=== PATIENT | female | born 1945 ===

== ENCOUNTER 2025-05-03 09:03 | Outpatient (REF) | payer OTHER, SELFPAY ==
--- OUTSIDE RECORDS SUMMARY | 2025-05-02 16:40 | XMS_ITS | Encounter Summary ---
Author Organization [facility] Address [address] [place] [address] Care Team Providers Care Shrimp Pond Laborer Name Role Phone Latisha Zuluaga MD Primary Care Provider [phone] Reason for Referral * Consultation (Routine) - Closed Specialty Diagnoses / Procedures Referred By Gerry daly Referred To Contact Neurology Diagnoses Nonintractable headache, unspecified chronicity pattern, unspecified headache type Latisha Zuluaga MD [address] [phone] Phone: tel: fax: [facility] [address] [place] [address] Phone: tel: fax: Referral ID Status Reason Start Date Expiration Date V isits Requested Visits Authorized [id number] Closed Specialty Services Required 03/27/2025 03/27/2026 1 1 Reason for Visit * Reason Onset Date Comments Fax: Referral Request 03/27/2025 Encounter Details Date Type Department Care Team ([facility] st Contact Info) Description 03/27/2025 Telephone Internal Medicine - [place] [facility] [address] [place] [address] Latisha Zuluaga MD [address] [place] [phone] Fax: Referral Request Social History Tobacco Use Types Packs/Day Years [...] on file documented as of this encounter Progress Notes * Latisha Zuluaga MD - 03/27/2025 6:38 PM EDT Referral placed * Darcy Mendoza MA - 03/27/2025 1:09 PM EDT Please advise * Fadia Pelayo - 03/27/2025 11:34 AM EDT [facility] ([place]) Diagnosis: DYER Date of Service 03/28/25 Visit: 6 *desktop architect attached fax to encounter documented in this encounter Plan of Treatment Upcoming Encounters Date Type Department Care Team (Late st Contact Info) Description 06/06/2025 3:00 PM EDT Office Visit [facility] [address] [place] [phone] Burak Larson MD [address] [place] [phone] 06/19/2025 11:00 AM EDT [address] [facility] [address] [place] [address] Scheduled Referrals Name Type Priority Associated Diagnoses Order Schedule Ambulatory referral to Neurology Outpatient Referral Routine Nonintractable headache, unspecified chronicity pattern, unspecified headache type 1 Occurrences starting 03/27/2025 until 03/27/2026 documented as of this encounter Goals Goal [...] documented as of this encounter Visit Diagnoses Diagnosis Nonintractable headache, unspecified chronicity pattern, unspecified headache type- Primary documented in this encounter Care Teams Shrimp Pond Laborer Relationship Specialty Start Date End Date Latisha Zuluaga MD [address] [facility] [address] [place] [phone] PCP - General 09/24/24 documented as of this encounter
[2025-05-03 10:36] LABS: Anion Gap 10 (12-20); Blood Urea Nitrogen 18 mg/dL (9-16); Calcium 10.6 mg/dL (8.4-10.2); Carbon Dioxide 34 mmol/L (22-29); Chloride 102 mmol/L (96-108); Estimated Glomerular Filt Rate > 60; Glucose Random 98 mg/dL (60-115); Potassium 3.8 mmol/L (3.3-5.1); Sodium 142 mmol/L (135-145)
[2025-05-03 10:52] LABS: Free T4 (Free Thyroxine) 0.95 ng/dL (0.71-1.85)
[2025-05-03 10:57] LABS: Erythrocyte Sedimentation Rate 18 MM/HR (0-20)
[2025-05-03 11:07] LABS: Folate 9.5 ng/mL (> or = 4.0); Vitamin B12 688 pg/mL (200-900)
== END 2025-05-03 09:04 | disposition home or self-care (01) ==
LOC: HO.LAB 09:03
PROVIDERS: PCP Internal Medicine; Visit Provider Psychiatry & Neurology Neurology
DX: G31.84 Mild cognitive impairment of uncertain or unknown etiology (principal)
CPT/HCPCS: 36415; 80048; 82607; 82746; 84439; 85652

== ENCOUNTER 2025-07-04 13:00 | Outpatient (AMB) | payer MEDICARE, SELFPAY ==
--- OUTSIDE RECORDS SUMMARY | 2025-07-04 13:04 | XMS_ITS ---
Author Name James LEWIS Ibisreginasherly del toro German Address [address] [place] [id number] Phone [phone] [facility] Care Team Providers Care Propulsion Systems Engineer Name Role Phone JamesNithin Unavailable [phone] Reason for Referral Not Available Allergies, adverse reactions, alerts Allergen Type Reaction Severity Status Onset Date Ibuprofen Allergy to substance (disorder) Rash Unknown Active N/A History of medication use Medication Class Instructions Start Date End Date Ezetimibe 10 mg Tab TAKE 1 TABLET BY TAMANNA TH EVERY DAY 2022-01-08 No Data Available hydroCHLOROthiazide 25 mg Tab TAKE 1 TAB LET BY MOUTH EVERY DAY 2021-10-14 No Data Available Levothyroxine Sodium 50 MCG Tab TAKE 1 T AB BY MOUTH DAILY. TAKE 1 EXTRA PILL EVERY 2 WEEKS 2021-10-14 No Data Available Famotidine 40 mg Tab TAKE 1 TABLET BY MO UTH 2 TIMES DAILY FOR 360 DAYS. 2022-01-26 2022-09-16 Hydrocortisone 2.5 % Crm APPLY LOCALLY T WICE A DAY 2021-10-08 No Data Available DULoxetine 30 mg Cap delayed rel TAKE 1 CAPSULE BY MOUTH DAILY FOR 360 DAYS. 2022-07-22 2022-09-16 Nitroglycerin 0.4 mg Tab Sublingual TAKE 1TAB UNDER TONGUE FOR CHEST PAIN MAY REPEAT EVERY 5MIN UP 3 TIMES IN 15MIN CALL 911 2021-12-24 No Data Available Rosuvastatin Calcium 5 mg Tab TAKE 1 TAB LET BY MOUTH EVERY DAY 2022-08-30 No Data Available Oxybutynin Chloride ER 5 mg Tab ER 24hr 1 tablet orally TID 2022-09-16 No Data Available Albuterol Sulfate HFA 108 (9 0 Base) MCG/ACT Aerosol Solution Inhalation 2 puffs Q 4-6H PRN cough, wheezing 2022-09-16 No Data Available Dicyclomine 10 mg Cap 1 capsule 3x daily 2022-09-16 2023-07-06 Aricept 5 mg Tab 1 tablet orally one time 2022-09-16 No Data Available Omeprazole 10 mg Cap delayed rel Take 1 capsule twice daily. 2022-09-16 2023-07-06 Vitamin B12 1000 MCG Tab 1 tablet daily 2022-09-16 N o Data Available Vitamin D3 25 MCG (1000 UT) Cap 1 capsules orally lore y 2022-09-16 No Data Available Ondansetron 4 mg Tab Disintegrating TAKE 1 TABLET BY MOUTH EVERY 8 HOURS NEEDED FOR NAUSEA AND VOMITING 2023-01-23 2023-07-06 DULoxetine 30 mg Cap delayed rel TAKE 1 CAPSULE BY MOUTH EVERY DAY 2023-01-06 No Data Available [facility] COVID-19 Antigen Rap id Home Test kit DIRECTED 2023-03-17 No Data Available Famotidine 40 mg Tab TAKE 1 TABLET BY MO UTH AT BEDTIME NEEDED 2023-01-06 No Data Available MELATONIN 5 MG TABLET TAKE 1 TABLET BY M OUTH EVERYDAY AT BEDTIME 2023-06-15 No Data Available Metoclopramide 5 mg Tab TAKE 1 TABLET BY MOUTH EVERY DAY 2023-06-15 No Data Available predniSONE 20 mg Tab 2 TAB FOR 3 DAYS AN D THEN 1 TAB DAILY 2023-06-15 2023-07-06 Amoxicillin 500 mg Cap TAKE 1 CAPSULE BY MOUTH THREE TIMES A DAY UNTIL GONE 2023-06-29 No Data Available Acetaminophen Extra Strength 500 mg Tab TAKE 1 TABLET BY MOUTH 3 TIMES A DAY NEEDED 2023-09-26 No Data Available Amoxicillin-Pot Clavulanate 875/125 mg Tab TAKE 1 TABLET BY MOUTH EVERY 12 HOURS FOR 10 DAYS 2023-09-26 No Data Available methylPREDNISolone 4 mg Tab Therapy Pack TAKE 6 TABLETS ON DAY 1 DIRECTED ON PACKAGE AND DECREASE BY 1 TAB EACH DAY FOR A TOTAL OF 6 DAYS 2023-09-26 2024-03-20 MELATONIN 5 MG CAPSULE TAKE ONE CAPSULE BY MOUTH DAILY AT 9PM AT BEDTIME 2023-10-14 No Data Available Restasis 0.05 % Emulsion INSTILL ONE GERSON P IN EACH EYE TWICE DAILY 2023-10-04 No Data Available Baclofen 5 mg Tab TAKE ONE TABLET BY M OUTH AT BEDTIME NEEDED 2023-10-08 No Data Available Problem List Problem Status Onset Date Resolved Date Synopsis Angina pectoris, unspecified Active 2022-09-20 N/A Stablebased on m embdelgado continues to take nitroglycerin prn [facility] Update 07/06/23:Follows up with PCP and Software Test Engineer.Denies any current or recent symptoms.No need to take Nitro recently, but has Rx to take as needed.Continue treatment as prescribed, follow up as instructed.Contact CB 24/7 as needed. GERD (gastroesophageal reflux disease) Active 2022-09-15 N/A StableFollows up with PCP and GI.Famotidine, Metoclopramide Doing well on current treatment.Denies any acute complaint.Continue treatment as prescribed, follow up as instructed.Contact CB 24/[address] Jacobs, brick wheeler Hypothyroidism Active 2022-09-15 N/A StableFoll owed by PCP, Dr. Marcio Srinivasan meds as prescribedFollows up with PCP and Screening Specialist.:Levothyrox ine Sodium Doing well on current treatment.Denies any acute complaint.Continue treatment as prescribed, follow up as instructed.Contact CB 24/7 as needed. Hyperlipidemia Active 2022-09-15 N/A StableFoll owed by PCP, Dr. Marcio Srinivasan meds as prescribed:Rosuvastatin Calcium, EzetimibeDoing well on current treatment.Denies any acute complaint.Continue treatment as prescribed, follow up as instructed.Advised on low fat, low carb, heart healthy diet. Contact CB 24/7 as needed. Overactive bladder Active 2022-09-16 N/A Stable Followed by urologist (doesn't remember name)Taking meds as prescribedDenies any acute complaint.Oxybutynin Chloride ERContinue treatment as prescribed, follow up as instructed.Contact CB 24/7 as needed. Asthma Active 2022-09-16 N/A StableFollowed by PCP, Dr. Marcio Srinivasan meds as prescribedAlbuterol Sulfate HFA 108 (90 Base) Continue treatment as prescribed, follow up as instructed.Contact CB 24/7 as needed. Mild dementia without behavioral disturbance, psychotic disturbance, mood disturbance, or anxiety Active 2022-09-20 N/A StableAricept 5 mg Tab 1 tablet orally QDDoing well on current treatment.Denies any acute complaint.Continue treatment as prescribed, follow up as instructed.Contact CB 24/7 as needed. Atrioventricular block, completePacemaker Active 2023-07-06 N/A StableFollows up with Software Test Engineer.Has pacemaker in place. Denies any acute complaint.Continue treatment as prescribed, follow up as instructed.Contact CB 20/06 as needed. Continue f/u with cardiology. Hypertension Active 2023-07-06 N/A StableFollow s up with PCP and Software Test Engineer. Reports BP has been well controlled.hydroCHLOROthiaz zan Doing well on current treatment.Denies any acute complaint.Continue treatment as prescribed, follow up as instructed.Contact CB 20/06 as needed. Peripheral vascular disease, unspecified Active 2023-07-11 N/A StableMD Po rtal notes member does have a diagnosis that includes PVDcontinues statin therapyCompression stockings, elevate legs and continue with PCP. Other problems related to medical facilities and other health care Active 2024-03-20 N/A CONTINGENCY PLANMDD Member to call for the following symptoms: Refusing/forgetting to take medications/ Thoughts of self-harm/ Frequent panic attacks/ Increased agitationPlanned intervention: Transfer member to [address] [place] [address]/ Hydroxyzine (Vistaril) 25mg PO q6h PRN anxiety/ Remind member of breathing exercises/ Limit extra stimulation Major depressive disorder, recurrent, mild Active 2022-09-20 N/A Stable Duloxetin eReports doing well on treatment. Denies any SI or HI. Has follow up with PCP next week. Continue taking medication and using coping mechanisms. Encounters Encounters Type Facility Date of Service Diagnosis/Co mplaint Pain Assessment - NO pain present (1126F) [facility] [place] Pain Assessment - NO pain present (1126F) [facility] [place] Pain Assessment - NO pain present (1126F) [facility] [place] Pain Assessment - NO pain present (1126F) [facility] [place] Pain Assessment - NO pain present (1126F) [facility] [place] Pain Assessment - NO pain present (1126F) [facility] [place] Pain Assessment - NO pain present (1126F) [facility] ([place]) 09/16/2022 Gastro-esophageal reflux disease without esophagitisHypothyroidism, unspecifiedHyperlipidemia, unspecifiedOveractive bladderUnspecified asthma, uncomplicatedMajor depressive disorder, single episode, moderateAngina pectoris, unspecifiedUnspecified dementia without behavioral disturbance Estab. patient 30-39min; chronic exacerbation, 2 stable chronic or 1 acute illness add add modifier 95 for video, (do not use for phone, instead use [id number]) [facility] ([place]) 07/[place]/2023 Major depressive disorder, single episode, moderateAngina pectoris, unspecifiedUnspecified dementia, mild, without behavioral disturbance, psychotic disturbance, mood disturbance, and anxietyPeripheral vascular disease, unspecifiedAtrioventricular block, completeGastro-esophageal reflux disease without esophagitisHypothyroidism, unspecifiedHyperlipidemia, unspecifiedOveractive bladderUnspecified asthma, uncomplicatedEssential (primary) hypertensionPresence of cardiac pacemaker Estab. patient 30-39min; chronic exacerbation, 2 stable chronic or 1 acute illness add add modifier 95 for video, (do not use for phone, instead use 24859-45) [facility] ([place] Estab. patient 30-39min; chronic exacerbation, 2 stable chronic or 1 acute illness add add modifier 95 for video, (do not use for phone, instead use 45971-49) [facility] [place] Estab. patient 30-39min; chronic exacerbation, 2 stable chronic or 1 acute illness add add modifier 95 for video, (do not use for phone, instead use 54920-99) [facility] [place] Estab. patient 30-39min; chronic exacerbation, 2 stable chronic or 1 acute illness add add modifier 95 for video, (do not use for phone, instead use 14727-25) [facility] [place] Estab. patient 30-39min; chronic exacerbation, 2 stable chronic or 1 acute illness add add modifier 95 for video, (do not use for phone, instead use 46193-77) [facility] ([place]20[place] Estab. patient 30-39min; chronic exacerbation, 2 stable chronic or 1 acute illness add add modifier 95 for video, (do not use for phone, instead use 59185-24) [facility] ([place] Estab. patient 30-39min; chronic exacerbation, 2 stable chronic or 1 acute illness add add modifier 95 for video, (do not use for phone, instead use 50570-82) [facility] ([place]) 07/06/2023 Unlisted special service; to be used for medical record reviews and reporting CPTII codes (1111F, etc) [facility] ([place] 09[place]29/2023 Other specified health statu s Unlisted special service; to be used for medical record reviews and reporting CPTII codes (1111F, etc) [facility] ([place] 09[place]29/2023 Unlisted special service; to be used for medical record reviews and reporting CPTII codes (1111F, etc) [facility] ([place] 09[place]29/20[place] Estab. patient 30-39min; chronic exacerbation, 2 stable chronic or 1 acute illness add add modifier 95 for video, (do not use for phone, instead use 63308-71) [facility] ([place] 03[place]/2024 Gastro-esophageal reflux disease without esophagitisHypothyroidism, unspecifiedHyperlipidemia, unspecifiedOveractive bladderUnspecified asthma, uncomplicatedOther problems related to medical facilities and other health careAngina pectoris, unspecifiedUnspecified dementia, mild, without behavioral disturbance, psychotic disturbance, mood disturbance, and anxietyAtrioventricular block, completePresence of cardiac pacemakerEssential (primary) hypertensionPeripheral vascular disease, unspecifiedMajor depressive disorder, recurrent, mild Estab. patient 30-39min; chronic exacerbation, 2 stable chronic or 1 acute illness add add modifier 95 for video, (do not use for phone, instead use 02615-30) [facility] ([place] 03[place]/20[place] Estab. patient 30-39min; chronic exacerbation, 2 stable chronic or 1 acute illness add add modifier 95 for video, (do not use for phone, instead use 92265-68) [facility] ([place] 03[place]/20[place] Estab. patient 30-39min; chronic exacerbation, 2 stable chronic or 1 acute illness add add modifier 95 for video, (do not use for phone, instead use 60443-44) [facility] ([place] 03/20/20[place] Estab. patient 30-39min; chronic exacerbation, 2 stable chronic or 1 acute illness add add modifier 95 for video, (do not use for phone, instead use 86813-89) [facility] ([place] 03[place]/20[place] Estab. patient 30-39min; chronic exacerbation, 2 stable chronic or 1 acute illness add add modifier 95 for video, (do not use for phone, instead use 15779-28) [facility] [place] 03[place] Estab. patient 30-39min; chronic exacerbation, 2 stable chronic or 1 acute illness add add modifier 95 for video, (do not use for phone, instead use 92462-08) [facility] ([place] 03[place]20/20[place] Estab. patient 30-39min; chronic exacerbation, 2 stable chronic or 1 acute illness add add modifier 95 for video, (do not use for phone, instead use 91270-53) [facility] [place] 03[place]20[place] Estab. patient 30-39min; chronic exacerbation, 2 stable chronic or 1 acute illness add add modifier 95 for video, (do not use for phone, instead use 41422-04) [facility] [place] 03[place] Estab. patient 30-39min; chronic exacerbation, 2 stable chronic or 1 acute illness add add modifier 95 for video, (do not use for phone, instead use 14744-06) [facility] ([place] 03[place]/2024 Vital Signs Date of Collection Vitals 2022-09-16 09:01:10 Height - 157.48 cmWe ight - 61.24 kgBody Mass Index (BMI) - 24.69 kg/m2 2023-07-06 07:18:09 Height - 157.48 cmWe ight - 56.25 kgBody Mass Index (BMI) - 22.68 kg/m2BP Diastolic - 80.0 mm[Hg]BP Systolic - 125.0 mm[Hg]Pain Scale - 0.0 {score} 2024-03-20 13:15:00 Height - 157.48 cmWe ight - 57.15 kgBody Mass Index (BMI) - 23.05 kg/m2BP Diastolic - 80.0 mm[Hg]BP Systolic - 140.0 mm[Hg] Social History Social History Social History Observation Description Effec tive Time Current Smoking Status Former smoker 7 Sex Female Gender identity Woman History of Procedures Procedures Service Procedure code Service date Servicing provider Phone# Pain Assessment - NO pain present (1126F) 1126F 2022-09-16 No Data Available No Data A vailable Medication List Documented (1159F) 1159F 2022-09-16 No Data Available No Data Vee ilable Medication Review by prescribing provider or pharmacist documented (1160F) 1160F 2022-09-16 No Data Available No Data Vee ilable Functional Status Assessed (1170F) 1170F 2022-09-16 No Data Available No Data Avail able Advance Care Directive Advance care planning discussion documented in the medical record (1158F) 1158F 2022-09-16 No Data Available No Data Availa ble BMI obtained (3008F) 3008F 2022-09-16 No Data Availab le No Data Available New patient,40-59min; chronic exacerbation, 2 stable chronic or 1 acute illness add add modifier 95 for video (do not use for phone, instead use [id number]) 99320 2022-09-16 No Data Available No Data Availa ble Estab. patient 30-39min; chronic exacerbation, 2 stable chronic or 1 acute illness add add modifier 95 for video, (do not use for phone, instead use 23279-54) 24455 2023-07-06 No Data Available No Data Availa ble Advance care planning discussed and documented advance care plan or surrogate decision-maker was documented in the medical record. (1123F) 1123F 2023-07-06 No Data Available No Data Availa ble Functional Status Assessed (1170F) 1170F 2023-07-06 No Data Available No Data Avail able Medication List Documented (1159F) 1159F 2023-07-06 No Data Available No Data Vee ilable Medication Review by prescribing provider or pharmacist documented (1160F) 1160F 2023-07-06 No Data Available No Data Vee ilable Pain Assessment - NO pain present (1126F) 1126F 2023-07-06 No Data Available No Data A vailable BMI obtained (3008F) 3008F 2023-07-06 No Data Availab le No Data Available Advance Care Directive Advance care planning discussion documented in the medical record (1158F) 1158F 2023-07-06 No Data Available No Data Availa ble Unlisted special service; to be used for medical record reviews and reporting CPTII codes (1111F, etc) 07326 2023-09-29 No Data Available No Data Availa ble SBP < 130 (3074F) 3074F 2023-09-29 No Data Available No Data Available DBP 80-89 (3079F) 3079F 2023-09-29 No Data Available No Data Available Estab. patient 30-39min; chronic exacerbation, 2 stable chronic or 1 acute illness add add modifier 95 for video, (do not use for phone, instead use 21724-70) 08272 2024-03-20 No Data Available No Data Availa ble Medication List Documented (1159F) 1159F 2024-03-20 No Data Available No Data Vee ilable Medication Review by prescribing provider or pharmacist documented (1160F) 1160F 2024-03-20 No Data Available No Data Vee ilable Pain Assessment - NO pain present (1126F) 1126F 2024-03-20 No Data Available No Data A vailable BMI obtained (3008F) 3008F 2024-03-20 No Data Availab le No Data Available Advance Care Directive Advance care planning discussion documented in the medical record (1158F) 1158F 2024-03-20 No Data Available No Data Availa ble Advance care planning discussed and documented advance care plan or surrogate decision-maker was documented in the medical record. (1123F) 1123F 2024-03-20 No Data Available No Data Availa ble SBP >= 140 3077F 2024-03-20 No Data Available No Data Available DBP 80-89 (3079F) 3079F 2024-03-20 No Data Available No Data Available Functional Status Assessed (1170F) 1170F 2024-03-20 No Data Available No Data Avail able Functional Status Functional Category Effective Dates supervision w/ IADLs & ADLs, family supp orts 2022-09-17 Activities of Daily Livin2023-07-06 Bathing: Needs some Assistance 9 Ambulation/Walking: Independent Eating: Independent 2023-07-06 Dressing: Needs some Assistance Toileting: Independent 2023-07-06 Transferring: Independent 2023-07-06 Cognition Status: Dementia - mild 03-20 Falls in last 6 Months: No 2024-03-20 ADL: Bathing Needs Assistanc e , Dressing Needs Assistance , Eating Independent , Ambulation Needs Assistance , Transferring Needs Assistance and Toileting Needs Assistance 2024-03-20 IADL: Medication Needs Akbar tance , Meal Prep Needs Assistance , Shopping Needs Assistance , Driving or Public Transport Needs Assistance , Housework Needs Assistance and Finances Needs Assistance 2024-03-20 Social Supports - # of Inter actions with Friends/Family in a typical week: 2024-03-20 Mental Status Status Date A&O x3 2022-09-17 Assessments Date of Service Assessments 2022-09-16 09:01:10 GERD (gastroesophage al reflux disease)HypothyroidismHyperlipidemiaOveractive bladderAsthmaMajor depressive disorder, single episode, moderateAngina pectoris, unspecifiedDementia 2023-07-06 07:18:09 GERD (gastroesophage al reflux disease)HypothyroidismHyperlipidemiaOveractive bladderAsthmaMajor depressive disorder, single episode, moderateAngina pectoris, unspecifiedMild dementia without behavioral disturbance, psychotic disturbance, mood disturbance, or anxietyAtrioventricular block, completePacemakerHypertensionPeripheral vascular disease, unspecified 2024-03-20 13:15:00 Other problems relat ed to medical facilities and other health careGERD (gastroesophageal reflux disease)HypothyroidismHyperlipidemiaOveractive bladderAsthmaAngina pectoris, unspecifiedMild dementia without behavioral disturbance, psychotic disturbance, mood disturbance, or anxietyAtrioventricular block, completePacemakerHypertensionPeripheral vascular disease, unspecifiedMajor depressive disorder, recurrent, mild Plan of Care Date of Service Plans 2022-09-16 09:01:10 Pain Assessment - NO pain documented (1126F)Medication Review by prescribing provider or pharmacist documented (1160F)Medication List Documented (1159F)Functional Status Assessed (1170F)Advance Care Directive Advance care planning discussion documented in the medical record (1158F)BMI obtained (3008F)Televideo new patient,40-59min; chronic exacerbation, 2 stable chronic or 1 acute illness add modifier 95Continue to see PCP. Follow-up with [facility] as needed for any acute or disease education needs that may arise.Followed by Dr. Jacobs gastroenterologistTaking meds as prescribedFollowed by PCP, Dr. Marcio Rodriguezking meds as prescribedFollowed by PCP, Dr. Marcio Rodriguezking meds as prescribedFollowed by urologist (doesn't remember name)Taking meds as prescribedFollowed by PCP, Dr. Marcio Rodriguezking meds as prescribedControlledPHQ9 score=12. Please consider adding F32.1 (MDD, single episode, moderate) as this diagnosis has a higher specificity and may more accurately reflect residents conditions (vs. F32.A)based on member continues to take nitroglycerin prnbased on member continues to take aricept 5mg daily 2023-07-06 07:18:09 Medication Review by prescribing provider or pharmacist documented (1160F)Medication List Documented (1159F)Functional Status Assessed (1170F)Advance Care Directive Advance care planning discussion documented in the medical record (1158F)BMI obtained (3008F)SBP < 130 (3074F)DBP <80 (3078F)Televideo 30-39min; chronic exacerbation, 2 stable chronic or 1 acute illness add modifier 95Advance care planning discussed and documented advance care plan or surrogate decision-maker was documented in the medical record. (1123F)Pain Assessment - NO pain documented (1126F)Continue to see PCP. Follow-up with [facility] as needed for any acute or disease education needs that may arise.Followed by Dr. Jacobs, gastroenterologistTaking meds as prescribedECCA Update 07/06/23:Follows up with PCP and GI.Taking:Famotidine 40 mg Tab TAKE 1 TABLET BY MOUTH AT BEDTIME NEEDEDMetoclopramide 5 mg Tab TAKE 1 TABLET BY MOUTH EVERY DAYDoing well on current treatment.Denies any acute complaint.Continue treatment as prescribed, follow up as instructed.Contact CB 20/06 as needed.Followed by PCP, Dr. Marcio kendall as prescribedECCA Update 07/06/23:Follows up with PCP and Screening Specialist.Taking:Levothyroxine Sodium 50 MCG Tab TAKE 1 TAB BY MOUTH DAILY. TAKE 1 EXTRA PILL EVERY 2 WEEKSDoing well on current treatment.Denies any acute complaint.Continue treatment as prescribed, follow up as instructed.Contact CB 24/7 as needed.Followed by PCP, Dr. Marcio kendall as prescribedECCA Update 07/06/23:Follows up with PCP.Taking:Rosuvastatin Calcium 5 mg Tab TAKE 1 TABLET BY MOUTH EVERY DAYEzetimibe 10 mg Tab TAKE 1 TABLET BY MOUTH EVERY DAYDoing well on current treatment.Denies any acute complaint.Continue treatment as prescribed, follow up as instructed.Advised on low fat, low carb, heart healthy diet. Contact CB 24/7 as needed.Followed by urologist (doesn't remember name)Taking meds as prescribedECCA Update 07/06/23:Denies any acute compalint.Taking:Oxybutynin Chloride ER 5 mg Tab ER 24hr 1 tablet orally TIDContinue treatment as prescribed, follow up as instructed.Contact CB 24/7 as needed.Followed by PCP, Dr. Marcio kendall as prescribedControlledECCA Update 07/06/23:No recent symptoms. Well controlled.Follows up with: PCP, next appt next week. Taking:Albuterol Sulfate HFA 108 (90 Base) MCG/ACT Aerosol Solution Inhalation 2 puffs Q 4-6H PRN cough, wheezingContinue treatment as prescribed, follow up as instructed.Contact CB 24/7 as needed.PHQ9 score=12. Please consider adding F32.1 (MDD, single episode, moderate) as this diagnosis has a higher specificity and may more accurately reflect residents conditions (vs. F32.A)ECCA Update 07/06/23:Follows up with PCP. Started taking Duloxetine 5 months ago. Reports doing well on treatment. Denies any SI or HI. Has follow up with PCP next week. Taking:DULoxetine 30 mg Cap delayed rel TAKE 1 CAPSULE BY MOUTH EVERY DAYContinue treatment as prescribed, follow up as instructed.Contact CB 24/7 as needed.based on member continues to take nitroglycerin prn ECCA Update 07/06/23:Follows up with PCP and Software Test Engineer.Denies any current or recent symptoms.No need to take Nitro recently, but has Rx to take as needed.Continue treatment as prescribed, follow up as instructed.Contact CB 24/7 as needed.based on member continues to take aricept 5mg dailyECCA Update 07/06/23:Follows up with PCP.Denies any complaints. Taking:Aricept 5 mg Tab 1 tablet orally QDDoing well on current treatment.Denies any acute complaint.Continue treatment as prescribed, follow up as instructed.Contact CB 24/7 as needed.Follows up with Software Test Engineer.Has pacemaker in place. Last BP obtained from outside records: 03/15/23 125/80 Denies any acute complaint.Continue treatment as prescribed, follow up as instructed.Contact CB 24/7 as needed.Follows up with PCP and Software Test Engineer. Last BP obtained from outside records: 03/15/23 125/80.Reports BP has been well controlled.Taking:hydroCHLOROthiazide 25 mg Tab TAKE 1 TABLET BY MOUTH EVERY DAYDoing well on current treatment.Denies any acute complaint.Continue treatment as prescribed, follow up as instructed.Contact CB 24/7 as needed.MD Sewell notes member does have a diagnosis that includes PVDcontinues statin therapy. Follow up with PCP. 2023-09-29 09:00:47 Unlisted special ser vice; to be used for medical record reviews and reporting CPTII codes (1111F, etc) 2024-03-20 13:15:00 Medication Review by prescribing provider or pharmacist documented (1160F)Medication List Documented (1159F)Functional Status Assessed (1170F)Advance Care Directive Advance care planning discussion documented in the medical record (1158F)BMI obtained (3008F)SBP >= 140DBP 80-89 (3079F)Televideo 30-39min; chronic exacerbation, 2 stable chronic or 1 acute illness add modifier 95Advance care planning discussed and documented advance care plan or surrogate decision-maker was documented in the medical record. (1123F)Pain Assessment - NO pain documented (1126F)Continue to see PCP. Follow-up with [facility] as needed for any acute or disease education needs that may arise.CONTINGENCY PLANMDD Member to call for the following symptoms: Refusing/forgetting to take medications/ Thoughts of self-harm/ Frequent panic attacks/ Increased agitationPlanned intervention: Transfer member to [address] [place] [address]/ Hydroxyzine (Vistaril) 25mg PO q6h PRN anxiety/ Remind member of breathing exercises/ Limit extra stimulationStableFollows up with PCP and GI.Famotidine, Metoclopramide Doing well on current treatment.Denies any acute complaint.Continue treatment as prescribed, follow up as instructed.Contact CB 24/[address] Jacobs, gastroenterologistStableFollowed by PCP, Dr. Marcio Srinivasan meddinorah as prescribedFollows up with PCP and Screening Specialist.:Levothyroxine Sodium Doing well on current treatment.Denies any acute complaint.Continue treatment as prescribed, follow up as instructed.Contact CB 24/7 as needed.StableFollowed by PCP, Dr. Marcio Srinivasan meds as prescribed:Rosuvastatin Calcium, EzetimibeDoing well on current treatment.Denies any acute complaint.Continue treatment as prescribed, follow up as instructed.Advised on low fat, low carb, heart healthy diet. Contact CB 24/7 as needed.StableFollowed by urologist (doesn't remember name)Taking meds as prescribedDenies any acute complaint.Oxybutynin Chloride ERContinue treatment as prescribed, follow up as instructed.Contact CB 24/7 as needed.StableFollowed by PCP, Dr. Marcio kendall as prescribedAlbuterol Sulfate HFA 108 (90 Base) Continue treatment as prescribed, follow up as instructed.Contact CB 24/7 as needed.Stablebased on member continues to take nitroglycerin prn [facility] Update 07/06/23:Follows up with PCP and Software Test Engineer.Denies any current or recent symptoms.No need to take Nitro recently, but has Rx to take as needed.Continue treatment as prescribed, follow up as instructed.Contact CB 24/7 as needed.StableAricept 5 mg Tab 1 tablet orally QDDoing well on current treatment.Denies any acute complaint.Continue treatment as prescribed, follow up as instructed.Contact CB 24/7 as needed.StableFollows up with Software Test Engineer.Has pacemaker in place. Denies any acute complaint.Continue treatment as prescribed, follow up as instructed.Contact CB 24/7 as needed. Continue f/u with cardiology.StableFollows up with PCP and Software Test Engineer. Reports BP has been well controlled.hydroCHLOROthiazide Doing well on current treatment.Denies any acute complaint.Continue treatment as prescribed, follow up as instructed.Contact CB 24/7 as needed.StableMD Portal notes member does have a diagnosis that includes PVDcontinues statin therapyCompression stockings, elevate legs and continue with PCP.Stable DuloxetineReports doing well on treatment. Denies any SI or HI. Has follow up with PCP next week. Continue taking medication and using coping mechanisms. Goals Date Goal 2022-09-16 Remember to call oph thalmologist about recent visual disturbances, dizziness 2022-09-16 Call me if you are f eeling sick or ill; experiencing a mental health crisis. 2022-09-16 Keep it up w/ increa sing fluids 2023-07-06 Remember to keep all appointments with your PCP and specialists. Call CB 24/7 if you have questions or concerns. Discussed how to contact [facility] via phone or tablet. 24 phone number provided. 2024-03-20 Remember to adhere t o dietary interventions and exercise as tolerable. 2024-03-20 Contact us if develo ping worsening depression, acute cardiac s/sx (eg. palpitations, chest pain), SOB, GI s/sx, uncontrolled hypothyroidism, or acute change in mental status. 2024-03-20 Continue taking medi cations as prescribed and f/u care and monitoring with PCP every 3-6 months. Health Concerns Date Concern 2024-03-20 Visit completed juliano plascencia audio/video. Patient/Guardian agreed to visit via telehealth. Today, patient has chief complaint of: follow up care and comprehensive review.Reviewed Allergies, Medications, Active Medical conditions, past medical/surgical history, Social history. 2024-03-20 Advance Care Planluis antonio plascencia conversation with: Salima, reports her daughter, Salima Watson is healthcare proxy. Full code. 2024-03-20 Most recent hospital stay(s) or ER visit(s) and precipitating factors: Denies in the last month. 2024-03-20 Informed verbal cons ent was obtained from this patient to communicate and provide care using virtual and other telecommunications tools. This patient has been explained the risks, if any, related to the encounter. I explained that care provided through video or audio communication cannot replace the need for physical examination or an in-person visit for some disorders or urgent problems.
--- OUTSIDE RECORDS SUMMARY | 2025-07-04 13:05 | XMS_ITS | Clinical Summary ---
Author Organization [address] [facility] Address [address] [place] [address] Phone Care Team Providers Care Embedded Linux Developer Name Role Phone Latisha Zuluaga MD Primary Care Provider [phone] Allergies Active Allergy Reactions Criticality Noted Date Comments Ibuprofen High 04/14/2018 Other Reaction(s): Hives/Urticaria Pneumococcal 13-Valent Conjugate To Diphtheria Crm 09/30/2020 No reaction documented. Medications albuterol HFA (PROAIR HFA ; PROVENTIL HFA ; VENTOLIN HFA) 90 mcg/actuation inhaler Inhale 2 Puffs into the lungs every 6 hours as needed for Cough or Wheezing. 1 Active cholecalciferol (VITAMIN D-3) 25 mcg (1,000 unit) tablet Take 1 tablet by mouth daily. Active DICLOFENAC SODIUM TOP Apply 1 g topically 4 times daily as needed (pain). 4 Active hydrocortisone 2.5 % cream Apply locally twice a day 1 Active magnesium oxide 500 mg magnesium tablet Take 500 mg by mouth. 9 Active metoclopramide (REGLAN) 5 mg tablet TAKE ONE TABLET BY MOUTH DAILY AT 9AM 4 Active nitroglycerin (NITROSTAT) 0.[address] 1 Tablet under the tongue every 5 minutes as needed for Chest pain. 3 Active omeprazole (PriLOSEC) [address] capsule Take 1 Capsule by mouth. 3 Active cyanocobalamin (VITAMIN B-12) 1,000 mcg tablet Take 1,000 mcg by mouth daily. Active aspirin 81 mg EC tablet Take 1 tablet (81 mg total) by mouth 1 (one) time each day. Active ubrogepant (UBRELVY) 50 mg tabletIndicatio ns:Migraine with aura and without status migrainosus, not intractable 1 po at onset of migraine. March repeat 1 tab after 2 hours if needed, max 2/day. 8 tablet 5 5 Active riboflavin (VITAMIN B2) 400 mg tablet TAKE 1 TABLET BY MOUTH EVERY DAY 30 tablet 3 5 Active melatonin 5 mg capsule Take 5 mg by mouth at bedtime. 90 each 5 Active levothyroxine (SYNTHROID, LEVOTHROID) 50 mcg tablet Take 1 tablet (50 mcg total) by mouth 1 (one) time each day before breakfast. 90 tablet 3 5 Active famotidine (PEPCID) 40 mg tablet Take 1 tablet (40 mg total) by mouth 1 (one) time each day. 90 tablet 1 5 Active oxyBUTYnin (DITROPAN) 5 mg tabletIndicatio ns:Essential (primary) hypertension,Hy pothyroidism, unspecified Take 1 tablet (5 mg total) by mouth 3 (three) times a day. 270 tablet 5 Active hydroCHLOROthia zide (HYDRODIURIL) 25 mg tablet Take 1 tablet (25 mg total) by mouth 1 (one) time each day. 30 tablet 5 Active Additional Information Patient taking differently:25 mg oral2 times daily PRN, Reported on 06/06/2025 donepeziL (ARICEPT) 5 mg tablet Take 1 tablet (5 mg total) by mouth at bedtime. 90 tablet 1 5 Active DULoxetine (CYMBALTA) [address] capsule Take 1 capsule (30 mg total) by mouth 1 (one) time each day. 90 capsule 1 5 Active baclofen (LIORESAL) 5 mg tablet Take 1 tablet (5 mg total) by mouth at bedtime as needed for muscle spasms. at bedtime 90 tablet 1 5 Active rosuvastatin (CRESTOR) 5 mg tablet Take 1 tablet (5 mg total) by mouth 1 (one) time each day. 90 tablet 3 5 Active galcanezumab-gn lm (EMGALITY) 120 mg/mL injection penIndications: Migraine with aura and without status migrainosus, not intractable Inject 1 mL (120 mg total) under the skin every 28 (twenty-eight) days. 1 each 5 5 025 Active SUMAtriptan (IMITREX) 50 mg tablet Take 1 tablet (50 mg total) by mouth 1 (one) time if needed for migraine. May repeat dose once in 2 hours if no relief. Do not exceed 2 doses in 24 hours. 9 tablet 5 5 025 Discontin ued(Thera py completed ) galcanezumab-gn lm (EMGALITY) 120 mg/mL injection penIndications: Migraine with aura and without status migrainosus, not intractable Inject 1 mL (120 mg total) under the skin every 28 (twenty-eight) days. 1 each 5 5 025 Discontin ued(Reord ) Hospital, Clinic, or Other Facility Administered Medication Ordered Dose Route Frequency Start Date End Date Status galcanezumab-gnlm (EMGALITY) injection pen 120 mgIndications:Migr britany with aura and without status migrainosus, not intractable 120 mg subQ Every 28 days 06/06/2025 06/06/2025 Discontinu ed perflutren lipid microsphere (DEFINITY) 1.3 mL in sodium chloride 0.9% 8.7 mL injectionIndicatio ns:Shortness of breath on exertion 10 mL IV Once 06/19/2025 06/19/2025 Ended Active Problems Problem Noted Date Diagnosed Date Intracranial carotid stenosis, bilateral 024 Assessment & Plan (03/26/2025 9:29 AM EDT): Orders: ECG 12 lead Claudication (CMS/[facility] V24) 08/30/2022 Overview (09/10/2024): Last Assessment & Plan: She does get some calf discomfort with walking. Do think we should exclude peripheral arterial disease and we will schedule for ABIs. Mixed hyperlipidemia 08/30/2022 Overview (09/10/2024): Last Assessment & Plan: I reviewed her last lipid profile from June demonstrated total cholesterol was 233, triglycerides of 247 the LDL was 135. I spoke to her about starting rosuvastatin. I discussed the indication as well as some, but not all possible side effects including muscle aches rare case of liver affecting the liver or muscle damage leading to renal problems. I have asked her to take the medicine once a day and I will repeat her blood work in 4 to 6 weeks I did tell her I placed the order and do want to go for blood work then. [place] 10/09/2021 Chest pain on exertion 08/26/2021 Overview (09/10/2024): Last Assessment & Plan: As I know she has been having chest tightness with exertion associated with no shortness of breath. As I noted she will be getting labs as well as a chest x- ray. Its not clear if this may be ischemic mediated I am going to schedule for nuclear stress test. Assessment & Plan (03/26/2025 9:29 AM EDT): She reports experiencing fatigue and dyspnea, particularly when ascending approximately 7 steps. She also experiences difficulty in walking on flat surfaces, accompanied by chest tightness and shortness of breath. These symptoms have been present for about 2 years and have progressively worsened over the past 6 months. Given her third-degree AV block and the presence of a [employer] permanent pacemaker, it is crucial to rule out angina or inadequate blood flow to the heart as potential causes. A pharmacological stress test will be conducted to simulate exercise and take pictures of the heart. Additionally, an echocardiogram will be repeated. Orders: Nuclear stress test with myocardial perfusion; Future Shortness of breath on exertion 08/26/2021 Overview (09/10/2024): Last Assessment & Plan: She has chronic dyspnea. She does feel this is slightly worse in the last 6 months. I will repeat an echocardiogram. Ordered pulmonary function testing. She is euvolemic with no symptoms of volume overload. Assessment & Plan (03/26/2025 9:29 AM EDT): Orders: ECG 12 lead Nuclear stress test with myocardial perfusion; Future Transthoracic echocardiogram (TTE) complete with PRN contrast, bubble, strain, and 3D order panel; Future Allergic rhinitis 09/30/2020 Anxiety 09/30/2020 Diverticulosis 09/30/2020 Dementia (CMS/HCC V24, CMS/HCC V28) 09/30/2020 Depression 09/30/2020 GERD (gastroesophageal reflux disease) 0 IBS (irritable bowel syndrome) 09/30/2020 Hiatal hernia 09/30/2020 Restless leg syndrome 09/30/2020 Arthritis 06/02/2020 Asthma 06/02/2020 Acquired hypothyroidism 05/09/2019 Essential hypertension 05/09/2019 Assessment & Plan (03/26/2025 9:29 AM EDT): Reasonably well-controlled. Will continue present therapy. Orders: ECG 12 lead Pure hypercholesterolemia 05/09/2019 Overview (09/10/2024): Last Assessment & Plan: Last lipid panel from September 2021. Total cholesterol 227, triglycerides 172, HDL 55, LDL 138, we discussed low-cholesterol diet. This is followed by PCP. Continue Zetia. Assessment & Plan (03/26/2025 9:29 AM EDT): On lipid-lowering therapy. Will continue. Orders: ECG 12 lead AV block, 3rd degree (CMS/HCC V24, CMS/HCC V28) 01/03/2019 Overview (09/10/2024): Last Assessment & Plan: Pacemaker was interrogated in June and appears to be functioning normally. She has 6 and half years left that she will need a new battery. Assessment & Plan (03/26/2025 9:29 AM EDT): Patient is pacemaker dependent. She has had reasonable chronotropic response to activity on a stress test in the past. She is followed in our device clinic. No pacemaker dysfunction is noted. Orders: Ambulatory referral to Cardiology ECG 12 lead Fibromyalgia 04/14/2018 Old AL (myocardial infarction) 04/14/2018 Encounters Date Type Department Care Team Description 06/19/2025 11:00 AM EDT Ancillary Procedure [facility] Cardiology [facility] [address] [place] [phone] Shortness of breath on exertion 06/06/2025 9:00 AM EDT Office Visit [facility] for [place] - [place] [address] [place] [phone] Burak Larson MD Migraine with aura and without status migrainosus, not intractable (Primary Dx); Anxiety 05/24/2025 Telephone [facility] Cardiology [address] [place] [phone] Oc Khan NP 05/20/2025 7:40 PM EDT Ancillary Procedure [facility] - [address] [place] [phone] 05/16/2025 Telephone Internal Medicine - [place] [address] [place] [phone] Latisha Zuluaga MD [place]: Referral 04/16/2025 9:00 AM EDT Ancillary Procedure [facility] - [address] [place] [phone] Shortness of breath on exertion; Chest pain on exertion from Last 3 Months Immunizations Name Administration Dates Next Due Pneumococcal conjugate 13 va lent (Prevnar 13, PCV13) 2mo and older 08/20/2015 Pneumococcal polysaccharide 23 valent (Pneumovax 23) 2yo and older 11/27/2012 Tdap Tetanus diptheria acell ular pertussis (Boostrix; Adacel) 7yo and older 11/27/2012 Tetanus Toxoid, Unspecified 11/28/1999 Surgical History Surgery Date Site/Laterality Comments APPENDECTOMY PROCEDURE: HISTORICAL APPENDECTOMY PACEMAKER IMPLANT PROCEDURE: HISTORICAL PACEMAKER UPPER GASTROINTESTINAL ENDOSCOPY 09/07/2013 PROCEDURE: UPPER GI ENDOSCOPY/EXAM; COMMENT: diverticulosis CATARACT EXTRACTION PROCEDURE: HISTORICAL CATARACT REMOVAL TUBAL LIGATION PROCEDURE: HISTORICAL TUBAL LIGATION BREAST LUMPECTOMY PROCEDURE: ---- BREAST LUMP BIOPSY ---- Medical History Medical History Date Comments Acquired hypothyroidism 05/09/2019 DX:Acqui red hypothyroidism Arthritis 06/02/2020 DX:Arthritis Asthma 06/02/2020 DX:Asthma AV block, 3rd degree ([facility]/ C V24, [facility] V28) 01/03/2019 DX:AV block, 3rd degree ([facility] ) Essential hypertension 05/09/2019 DX:Essent ial hypertension Fibromyalgia 04/14/2018 DX:Fibromyalgia Old AL (myocardial infarction) 04/14/2018 D X:Old AL (myocardial infarction) Pacemaker 06/02/2020 DX:Pacemaker Pure hypercholesterolemia 05/09/2019 DX:Pur e hypercholesterolemia Diverticulosis 09/30/2020 DX:Diverticulosi s Allergic rhinitis 09/30/2020 DX:Allergic rh initis Anxiety 09/30/2020 DX:Anxiety Dementia ([facility] V24, [facility] V28) 09/30/2020 DX:Dementia ([facility]) Depression 09/30/2020 DX:Depression GERD (gastroesophageal reflux disease) 09/30/2020 DX:GERD (gastroesophageal reflux disease) IBS (irritable bowel syndrome) 09/30/2020 D X:IBS (irritable bowel syndrome) Hiatal hernia 09/30/2020 DX:Hiatal hernia Restless leg syndrome 09/30/2020 DX:Restles s leg syndrome Family History Medical History Relation Name Comments Heart attack Father Heart failure Father Hyperlipidemia Father Hypertension Father Heart attack Mother Heart failure Mother Hyperlipidemia Mother Hypertension Mother Relation Name Status Comments Father Mother Social History Tobacco Use Types Packs/Day Years Used Date Smoking Tobacco: Former Smokeless Tobacco: Never Alcohol Use Standard Drinks/Week Comments No 0 (1 standard drink = 0.6 oz pur e alcohol) Comments Unknown Sex and Gender Information Value Date Recorded Sex Assigned at Not on file Legal Sex Female 2:14 AM EST Gender Identity Not on file Sexual Orientation Not on file Obstetrics History Last Filed Vital Signs Vital Sign Reading Time Taken Comments Blood Pressure 162/82 06/19/2025 11:55 AM EDT Pulse 65 06/06/2025 9:27 AM EDT Temperature 35.9 C (96.7 F) 06/06/2025 9:27 AM EDT Respiratory Rate 16 10/02/2024 3:32 PM EST Oxygen Saturation 98% 06/06/2025 9:27 AM EDT Inhaled Oxygen Concentration - - Weight 55.3 kg (122 lb) 06/19/2025 11:55 AM EDT Height 157.5 cm (5' 2 ) 06/19/2025 11:55 AM EDT Body Mass Index 22.31 06/19/2025 11:55 AM EDT Plan of Treatment Upcoming Encounters Date Type Department Care Team (Late st Contact Info) Description 08/02/2025 1:40 PM EDT Office Visit [facility] [address] [place] [address] Oc Khan NP [address] [place] [address] [address] [place] [address] 10/09/2025 1:00 PM EST Office Visit [facility] [address] [place] [phone] Carmen Reina PA [address] [place] [address] Health Maintenance Due Date Last Done Comments Zoster Vaccines (1 of 2) 1995 RSV Immunization Adult Patients (1 - 1-dose 75+ series) 2020 Hepatitis C Screening 11/04/2022 Osteoporosis Screening (Bone Density Screening) 11/04/2022 Social Influencers of Health Screening 11/04/2022 DTaP,Tdap,and Td Vaccines (2 - Td or Tdap) 11/27/2022 11/27/2012 COVID-19 Vaccine (1 - 2023-2 5 season) 2024 Depression Screening 11/28/2024 12/08/2023 Hypertension/CHF/CAD Annual BMP Blood Test 12/07/2024 12/07/2023 Falls Risk Assessment 12/08/2024 12/08/2023 Medicare Annual Wellness Visit 12/08/2024 12/08/2023 Influenza Vaccine (#1) 2025 Cholesterol Screening (Lipid Panel) 12/07/2028 12/07/2023, 04/14/2018 Pneumococcal Vaccine: 50+ Years Completed 08/20/2015, 11/27/2012 HIB Vaccines Aged Out No longer eligi ble based on patient's age to complete this topic HPV Vaccines Aged Out No longer eligi ble based on patient's age to complete this topic Hepatitis A Vaccines Aged Out No long er eligible based on patient's age to complete this topic Hepatitis B Vaccines Aged Out No long er eligible based on patient's age to complete this topic IPV Vaccines Aged Out No longer eligi ble based on patient's age to complete this topic MMR Vaccines Aged Out No longer eligi ble based on patient's age to complete this topic Meningococcal ACWY Vaccine Aged Out N o longer eligible based on patient's age to complete this topic Meningococcal B Vaccine Aged Out No l onger eligible based on patient's age to complete this topic RSV Immunization Patients Under 20 months Aged Out No longer eligible b ased on patient's age to complete this topic Varicella Vaccines Aged Out No longer eligible based on patient's age to complete this topic Goals Goal Patient Goal Type Associated Problems Recent Progress Patient-Stated? Author LTGs General No Marco Owens, PT Note: Pt will complete 6 minute walk with no left knee pain - Not Met Pt will ascend/descend 12 steps with reciprocal stepping pattern and no left knee pain - not met Pt will be independent with HEP - [employer] Implanted Type Area Technical Customer Support Specialist Device Identifier Shelf Expiration Date Model / Serial / Lot Bsci-Crm [id number] Implanted:05/2021 (Quantity not on file) Cardiac Pacemaker [employer] MGMT [id number] / [id number] / Procedures Procedure Name Priority Date/Time Associated Diagnosis Comments TRANSTHORACIC ECHOCARDIOGRAM (TTE) COMPLETE W/ CONTRAST Routine 06/19/2025 11:56 AM EDT Shortness of breath on exertion CARDIAC DEVICE CHECK- REMOTE- MURJ Routine 05/20/2025 7:37 PM EDT OR LEXISCAN STRESS TEST W/ MYOCARDIAL PERFUSION Routine 04/16/2025 11:09 AM EDT Shortness of breath on exertion Chest pain on exertion DEPRESSION SCREENING Routine 12/08/2023 FALLS RISK ASSESSMENT Routine 12/08/2023 ANNUAL BMP BLOOD TEST Routine 12/07/2023 LIPID PANEL Routine 12/07/2023 from Last 3 Months or Most Recently Relevant to Health Maintenance Results * (ABNORMAL) TRANSTHORACIC ECHOCARDIOGRAM (TTE) COMPLETE W/ CONTRAST (06/19/2025 11:56 AM EDT) Left Atrium Minor Clyman 5.3 cm CV PACS Left Atrium Major Clyman 4.9 cm CV PACS LA Area Sys (A2C) 20 cm2 CV PACS LA Area Sys (A4C) 18 cm2 CV PACS LA Volume (BP) 56 mL CV PACS RA Area 12.4 cm2 CV PACS RA 2D Volume 27 mL CV PACS AV Mean Gradient 3 mmHg CV PACS Ao VTI 28.9 cm CV PACS AV Peak Per 1.3 m/s CV PACS AV Peak Gradient 7 mmHg CV PACS AV Area Continuity Equation 1.5 cm2 CV PACS AV Area Peak Velocity 1.4 cm2 CV PACS Aortic Sinus Valsalva 3.5 cm CV PACS Ascending Aorta 3.7 cm CV PACS IVSD 0.7 0.6 - 0.9 cm CV PACS LVIDD 4.5 3.8 - 5.2 cm CV PACS LVIDS 3.0 2.2 - 3.5 cm CV PACS LVOT Diameter 1.5 cm CV PACS LVOT Mean Per 0.7 m/s CV PACS LVOT Mean Grad 2 mmHg CV PACS LVOT Peak VTI 24.5 cm CV PACS LVOT Peak Per 1.1 m/s CV PACS LVOT Peak Gradient 5 mmHg CV PACS LVPWD 0.7 0.6 - 0.9 cm CV PACS MV E' Tissue Velocity Lateral 5 cm/s CV PACS MV E' Tissue Velocity Septal 4 cm/s CV PACS LVOT Area 1.8 cm2 CV PACS LVOT Stroke Volume 43 mL CV PACS MV Deceleration [place] 1.5 m/s2 CV PACS E Wave Deceleration Time 246(A) 119 - 242 ms CV PACS MV PHT 71 ms CV PACS MV Peak A Per 0.50 m/s CV PACS MV Peak E Per 0.40 m/s CV PACS MV Mean Gradient 1 mmHg CV PACS MV VTI 22.9 cm CV PACS Mitral Valve Max Velocity 0.8 m/s CV PACS MV Peak Gradient 3 mmHg CV PACS MV Area PHT 3.1 cm2 CV PACS MV Area Continuity Equation 1.9 cm2 CV PACS PV Acceleration Time 102 ms CV PACS PV Acceleration Time 113 ms CV PACS PV Acceleration Time 108 ms CV PACS RV S' 10 cm/s CV PACS TAPSE 20 mm CV PACS TR Peak Velocity 2.40 m/s CV PACS TR Peak Gradient 22 mmHg CV PACS E/E' Ratio Septal 10 CV PACS E/E' Ratio Averaged 9 CV PACS Relative Wall Thickness ratio 0.31 0.22 - 0.42 CV PACS LVOT:AV VTI Index 0.85 CV PACS FS 33 % CV PACS LV Mass 2D 96 66 - 150 g CV PACS MV VTI:LVOT VTI ratio 0.9 CV PACS LVOT flow 124 mL/s CV PACS AV Velocity Ratio 0.85 CV PACS E/A Ratio 0.8 0.8 - 2.0 CV PACS E/E' Ratio Lateral 8 CV PACS LVOT Stroke Index 28 mL/m2 CV PACS Ascending Aorta Index 2.39 cm/m2 CV PACS RA 2D Volume Index 17 15 - 27 mL/m2 CV PACS VINICIO Index (VTI) 0.97 cm2/m2 CV PACS VINICIO Index (Pk Per) 0.90 cm2/m2 CV PACS LVIDD Index 2.90 cm/m2 CV PACS LVIDS Index 1.94 cm/m2 CV PACS LA Volume Index (BP) 36 mL/m2 CV PACS LV Mass Index 2D 62 44 - 88 g/m2 CV PACS BSA 1.56 m2 CV PACS RV Diastolic Basal Dimension 2.9 2.5 - 4.1 cm CV PACS RV Free Wall Peak S' 10 cm/s CV PACS RA Major Clyman 4.7 cm CV PACS RA Major Clyman Index 3.0(A) 2.2 - 2.8 cm/m2 CV PACS AV Area 2D 1.4 cm2 CV PACS VINICIO Index (2D) 0.90 cm2/m2 CV PACS AV Area Index 0.9 CV PACS Anatomical Region Laterality Modality Ultrasound Narrative 06/24/2025 12:02 PM EDT Left ventricle cavity size is normal. Wall thickness is normal. Systolic function is normal with an ejection fraction of 55-60%. Abnormal septal motion consistent with RV pacemaker No hemodynamically significant valvular dysfunction Compared to the prior study from 2021, there has been no significant change Left Ventricle Left ventricle cavity size is normal. Wall thickness is normal. Systolic function is normal with an ejection fraction of 55-60%. Abnormal septal motion consistent with RV pacemaker. Indeterminate diastolic function. Right Ventricle Right ventricle cavity appears normal. Systolic function is normal. Left Atrium Left atrium cavity is mildly dilated. Right Atrium Right atrium cavity is normal. IVC/SVC Inferior vena cava structure is normal. RA pressures is estimated to be 3 mmHg (IVC diameter <21 mm and decreases >50% during inspiration). Mitral Valve The leaflets are mildly thickened. There is mild annular calcification. There is trace regurgitation. There is no evidence of mitral valve stenosis. Tricuspid Valve Tricuspid valve structure is normal. There is trace regurgitation. There is no evidence of tricuspid valve stenosis. Aortic Valve The aortic valve is trileaflet. The leaflets are mildly thickened. There is mild regurgitation. There is no evidence of aortic valve stenosis. Pulmonic Valve Visualized portions of the pulmonic valve appear normal. There is trace to mild pulmonic valve regurgitation. There is no evidence of pulmonic valve stenosis. Ascending Aorta The aorta appears normal in size. Pericardium Pericardium appears normal. There is no pericardial effusion. Study Details Overall the study quality was suboptimal. Definity contrast was given to enhance imaging. Study was difficult due to: poor endocardial visualization. us Kaden Liz MD CV ECHO PROCEDURES Final Resul t * Cardiac device check - Remote- MURJ (05/20/2025 7:37 PM EDT) Pathologist [facility] Date Time Interrogation Session [id number] CV DEVICE CHECK Type Interrogation Session Remote Scheduled CV DEVICE CHECK Implantable Pulse Generator Technical Customer Support Specialist BSX CV DEVICE CHECK Implantable Pulse Generator Type IPG CV DEVICE CHECK Implantable Pulse Generator Model L101 CV DEVICE CHECK Implantable Pulse Generator Serial Number [id number] CV DEVICE CHECK Implantable Pulse Generator Implant Date [id number] CV DEVICE CHECK Battery Remaining Percentage 71.00 CV DEVICE CHECK Battery Remaining Longevity 42.0 CV DEVICE CHECK Battery Status Beginning of Service CV DEVICE CHECK Bob Statistic RA Percent Paced 23.00 CV DEVICE CHECK Bob Statistic RV Percent Paced 100.00 CV DEVICE CHECK Atrial Tachy Statistic AT/AF Baldwin Percent 1.00 CV DEVICE CHECK Lead Channel Sensing Intrinsic Amplitude 5.600 CV DEVICE CHECK Lead Channel Setting Sensing Sensitivity 0.25 CV DEVICE CHECK Lead Channel Impedance Value 426 CV DEVICE CHECK Lead Channel Pacing Threshold Amplitude 0.500 CV DEVICE CHECK Lead Channel Pacing Threshold Pulse Width 0.4 CV DEVICE CHECK Lead Channel RA Pacing Threshold Date 2025-05-06 CV DEVICE CHECK Lead Channel Setting Pacing Amplitude 2.000 CV DEVICE CHECK Lead Channel Setting Pacing Pulse Width 0.4 CV DEVICE CHECK Lead Channel Setting Sensing Sensitivity 1.50 CV DEVICE CHECK Lead Channel Impedance Value 356 CV DEVICE CHECK Lead Channel Pacing Threshold Amplitude 1.400 CV DEVICE CHECK Lead Channel Pacing Threshold Pulse Width 0.4 CV DEVICE CHECK Lead Channel RV Pacing Threshold Date 2025-05-06 CV DEVICE CHECK Lead Channel Setting Pacing Amplitude 1.900 CV DEVICE CHECK Lead Channel Setting Pacing Pulse Width 0.4 CV DEVICE CHECK Bob Setting Mode (NBG Code) DDD CV DEVICE CHECK Bob Setting Lower Rate Limit 60 CV DEVICE CHECK Bob Setting AT Mode Switch Rate 170 CV DEVICE CHECK Bob Setting Maximum Tracking Rate 110 CV DEVICE CHECK Bob Setting Maximum Sensor Rate 130 CV DEVICE CHECK Bob Setting PAV Delay 80 CV DEVICE CHECK Bob Setting JARVIS Delay 65 CV DEVICE CHECK Zone Setting Type Category VT CV DEVICE CHECK Rate 160 CV DEVICE CHECK Zone Setting Status Monitor CV DEVICE CHECK Zone ID 1 CV DEVICE CHECK Date of Service 2025-05-20 CV DEVICE CHECK Anatomical Region Laterality Modality Device Interroga tion 05/08/2025 12:3 1 AM EDT Impressions 05/20/2025 10:50 AM EDT Normal Remote: With Events * Normal Device Function * Events or Alerts: 6 *AF each < 1 minute each * Battery: Battery is at 71%, 3.50 yrs * Sensing, impedance and thresholds reviewed * Programmed parameters reviewed * Presenting rhythm reviewed * Heart Rate Histograms reviewed Narrative Procedure Note Lia Ramires MD - 05/20/2025 IMPRESSION: Normal Remote: With Events * Normal Device Function * Events or Alerts: 6 *AF each < 1 minute each * Battery: Battery is at 71%, 3.50 yrs * Sensing, impedance and thresholds reviewed * Programmed parameters reviewed * Presenting rhythm reviewed * Heart Rate Histograms reviewed us Lia Ramires MD CV IMPLANTABLE CARDIAC DEV ICE PROCEDURES Final Result * NM LEXISCAN STRESS TEST W/ MYOCARDIAL PERFUSION (04/16/2025 11:09 AM EDT) Target HR 120 bpm CV PACS STRESS Baseline HR 60 bpm CV PACS STRESS Baseline SBP 143 mmHg CV PACS STRESS Baseline DBP 65 mmHg CV PACS STRESS Peak HR 95 bpm CV PACS STRESS Peak SBP 110 mmHg CV PACS STRESS Peak DBP 52 mmHg CV PACS STRESS Rate Pressure Product 10,450.0 mmHg*bpm CV PACS STRESS Percent HR 67 % CV PACS STRESS BSA 1.58 m2 CV PACS STRESS TID 1.28 CV PACS STRESS Nuc Stress EF 86 % CV PAC S STRESS Nuc Rest EF 84 % CV PACS STRESS Anatomical Region Laterality Modality Nuclear Medicine Impressions 04/19/2025 9:41 AM EDT 1. Abnormal pharmacological nuclear stress test. 2. Symptoms: No chest pain during the regadenoson infusion 3. Stress ECG: Nondiagnostic stress ECG in the setting of a paced rhythm 4. Myocardial perfusion imaging: - Attenuation corrected myocardial perfusion imaging revealed evidence of a small in size and severe in intensity reversible perfusion defect in the apical inferior wall, suggestive of ischemia. - The attenuation corrected myocardial perfusion imaging did not show any fixed perfusion defects to suggest the presence of an infarct. 5. TID was normal at 1.28. 6. Gated images revealed normal LV wall motion and thickening; with a normal LV systolic function (LVEF 84%). Narrative 04/19/2025 9:41 AM EDT Stress Findings A pharmacological stress test was performed using regadenoson, 0.4 mg IV over 10-15 seconds, followed by radiopharmacological injection 10 seconds post infusion. The patient reached the end of the protocol. Reversal medication aminophylline 50mg given. Blood pressure demonstrated a normal response. Heart rate demonstrated a normal response. Symptoms occured in recovery. Resolved with aminophylline. The patient reported headaches during the stress test. ECG 79-year-old female presents for nuclear stress test to evaluate exertional shortness of breath symptoms. She has history of third-degree AV block status post pacemaker, hypertension and hyperlipidemia. The ECG shows atrioventricular (AV) pacing. There were no arrhythmias during stress. There is no significant ST abnormalities during stress. There were no arrhythmias during recovery. The result of the stress ECG was non-diagnostic for ischemia due to paced rhythm. Nuclear Study Quality Study technique: MPI, SPECT, multi, rest and stress, 1 day. Overall image quality is excellent. CT attenuation correction was utilized. There are no artifacts present. There was no increased lung uptake of the radiopharmaceutical. No radiopharmaceutical dose was extravasated. The time from injection to rest imaging is 30 mins. The time from injection to stress imaging is 60 mins. Perfusion Defect Conclusion There is no evidence of transient ischemic dilation (TID). Stress Function Comments Left ventricular systolic function post-stress is normal. Stress ejection fraction is 86%. Rest Function Comments Left ventricular function at rest was normal. Resting ejection fraction was 84%. Stress Combined Conclusion SCAN FINDINGS: Nuclear imaging of the left ventricle reveals normal cavity size at rest with no change with stress imaging. Myocardial perfusion imaging of the left ventricle revealed a small in size and moderate in intensity partially reversible defect in the mid to apical inferior wall. The raw images demonstrated soft tissue attenuation artifact. . CT attenuation correction was applied to the study which partially corrects the previously mentioned perfusion abnormality. Therefore, at least part of the previously mentioned perfusion abnormality was likely secondary to soft tissue attenuation artifact. Nevertheless, even after attenuation correction was applied, there is evidence of a small in size and severe in intensity reversible perfusion defect in the apical inferior wall. No fixed perfusion defects were noted on the attenuation corrected images. Gated SPECT imaging was performed which demonstrated normal LV function and thickening with a calculated LVEF of 84% Perfusion Scoring Resting Summed Score: 0 Percent Normal: 0.00% The left ventricular perfusion is normal. Attenuation corrected resting images Perfusion Scoring Stress Summed Score: 3 Percent Normal: 4.41% Severe count reduction in the following segments: apical inferior. All other segments are normal. Attenuation corrected stress images Perfusion Scores: SRS Score: 0 Percentage Abnormal: 0.00% Perfusion Scores: SSS Score: 3 Percentage Abnormal: 4.41% Perfusion Scores: SDS Score: 3 Percentage Abnormal: 4.41% us Kaden Liz MD CV STRESS PROCEDURES Final Res ult * Falls Risk Assessment (12/08/2023) [facility] Falls Risk Assessment abstracted [facility] Provider HEALTH MAINTENANCE Final Result * Depression Screening (12/08/2023) [facility] Depression Screening abstracted [facility] Provider HEALTH MAINTENANCE Final Result * Annual BMP Blood Test (12/07/2023) Pathologist [facility] Annual BMP Blood Test abstracted Result [facility] Provider HEALTH MAINTENANCE Final Result * (ABNORMAL) Lipid panel (12/07/2023) [facility] LDL/HDL Ratio 3 0 - 4 Triglycerides 152(A) 0 - 150 mg/dL Cholesterol 168 0 - 200 mg/dL HDL 55 >=40 mg/dL LDL Cholesterol 83 0 - 100 mg/dL Blood Venous blood specimen / Unknown Result [facility] Provider LAB BLOOD ORDERABLES Rosalba l Result from Last 3 Months or Most Recently Relevant to Health Maintenance Insurance [employer] [place] Care Teams Embedded Linux Developer Relationship Specialty Start Date End Date Latisha Zuluaga MD [address] [place] [id number] PCP - General 09/24/24
--- OUTSIDE RECORDS SUMMARY | 2025-07-04 13:05 | XMS_ITS | Continuity of Care Document ---
Author Organization [facility] [address] [place] [address] Phone [phone] Care Team Providers Care Health And Safety Representative Name Role Phone Latisha Zuluaga M.D. Care Team Information Receive r [phone] Problems Active Problems Provider Date H/O: depression Omar Núñez M.D. Onset: 0 12/29/2022 Allergic rhinitis Omar Núñez M.D. Onset: 12/29/2022 Dementia Omar Núñez M.D. Onset: 0 12/29/2022 Gastroesophageal reflux disease Omar menjivar M.D. Onset: 12/29/2022 Irritable bowel syndrome Omar Núñez M.D. Onset: 12/29/2022 Arthritis Omar Núñez M.D. Onset: 0 12/29/2022 Asthma Omar Núñez M.D. Onset: 0 12/29/2022 Cardiac pacemaker in situ Lima Castañeda Onset: 12/29/2022 Essential hypertension Omar Núñez M.D. O nset: 12/29/2022 Pure hypercholesterolemia Lima Castaeñda Onset: 12/29/2022 Fibromyalgia Omar Núñez M.D. Onset: 0 12/29/2022 Myocardial infarction Omar Núñez M.D. On set: 12/29/2022 Antoni thyroiditis Omar Núñez M.D. On set: 03/15/2023 Hypothyroidism Omar Núñez M.D. Onset: 0 03/15/2023 Social History Type Date Description Comments Sex Female Sex Unknown ETOH Use Denies alcohol use Tobacco Use Start: Unknown End: Unknown Patient is a former smoker teenage age Allergies and adverse reactions Active Allergies Criticality Reaction Severity Comments Date Ibuprofen Unable to assess criticality 12/29/2022 Prevnar 13 Unable to assess criticality 12/29/2022 Medications Active Medications SIG Qnty Indications Ordering Provider Date Levothyroxine [id number] Capsules take 1 tablet by mouth 6 days per week Omar Núñez M.D. 10/07/2023 Metoclopramide HCL5mg Tablets 1 tab by mouth three times a day Omar Núñez M.D. 10/07/2023 [id number] Capsules take 1 capsule by mouth twice a day Omar Núñez M.D. 01/11/2023 Donepezil HCL5mg Tablets Take 1 Tablet By Mouth Every Day AT Bedtime For 180 Days Latisha Zuluaga M.D. Sycxhelifuyafslsvlm94sj Tablets Take 1 Tablet By Mouth Every Day Mandy Mason PA-C Oxybutynin Kkirovtv7rf Tablets Take 1 Tablet By Mouth Three Times A Day Latisha Zuluaga M.D. Yqyixvjm4tf Tablets Take 1 Tablet By Mouth AT Bedtime as Needed For Other. Latisha Zuluaga M.D. Vksywjhyr73lf Tablets Take 1 Tablet By Mouth Every Day Latisha Zuluaga M.D. Mhomoychfa63gw Tablets Take 1 Tablet By Mouth AT Bedtime as Needed For Burping Unknown Rosuvastatin Gfnwarp5ec Tablets Take 1 Tablet By Mouth Every Day Byron Wagoner M.D. Duloxetine XZN72ag Caps DR Part Take 1 Capsule By Mouth Daily For 360 Days. Marcio Daniel M.D. Usouecixen59yl Capsules DR Take 1 Capsule By Mouth Twice A Day Unknown Spxpldmwrvm5uk Tablets Dispers Take 1 Tablet By Mouth Every 8 Hours as Needed For Nausea And Vomiting Unknown Vital Signs Date Vital Result Comment 10/07/2023 3:23pm BP Systolic 126 mmHg BP Diastolic 70 mmHg Heart Rate 72 /min Height 62 inches 5'2 Weight 116.12 lb BMI (Body Mass Index) 21.2 kg/m2 Results Test Acquired Date Facility Test Result H/L Range N ote Free T4 10/07/2023 [facility] Free T4 1.60 ng/dL (0.70-1.8 0) TSH 10/07/2023 [facility] TSH 0.78 uIU/mL (0.4-4.2) TSH With Reflex To FT4 03/15/2023 [facility] TSH With Reflex To FT4 <pending> TSH With Reflex To FT4 03/08/2023 [facility] TSH With Reflex To FT4 0.15 uIU/mL Low (0.4-4.2) Anti Thyroid Peroxidase AB 03/08/2023 [facility] Anti Thyroid Peroxidase AB 474.3 IU/mL High (<5.6) 1 Free T4 03/08/2023 [facility] Free T4 1.56 ng/dL (0.70-1.8 0) 1 Antibody measurement represents one parameter in a multicriteria diagnostic process. Correlate results with clinical presentation. This test was performed on the [employer] immunoassay system. Medical Devices Description No Information Available Encounters Type Date Location Provider Dx Diagnosis Office Visit 10/07/2023 3:15p Main Office Omar Núñez M.D. E03.9 Hypothyroidism, unspecified Assessments Date Code Description Provider 10/07/2023 E03.9 Hypothyroidism, unspecified Omar Núñez M.D. Plan of Treatment 10/07/2023 - Omar Núñez M.D.* E03.9 Hypothyroidism, unspecified * Functional Status Description No Information Available Mental Status Description No Information Available Referrals Description No Information Available
--- OUTSIDE RECORDS SUMMARY | 2025-07-04 13:05 | XMS_ITS ---
Author Name [facility] Organization Unknown History of Medication Use Medication Directions Dispensed Refills Start Date End Date Stat us rosuvastatin (CRESTOR) tablet 5 mg TAKE ONE TABLET BY MOUTH DAILY AT 5PM 09/17/2024 active albuterol 108 (90 Base) MCG/ACT inhaler Inhale 2 Puffs into the lungs every 6 hours as needed for Cough or Wheezing. 10/08/2021 active pregabalin (LYRICA) capsule 150 mg Take by mouth. 03/21/2019 active Allergies Allergen Reaction Severity Comment Documented Date Source Statu s IBUPROFEN HIVES 04/14/2018 [facility] active Problems Problem Status Onset Date Problem Type Date of Resolution Source Pacemaker active 6 ProblemAct [facility] Pure hypercholesterolemia active 2019-04-28 2 ProblemAct [facility] Headache active EncounterDiagnosisAct [facility] Arthritis active 6 ProblemAct [facility] Essential hypertension active 2018-08-29 6 ProblemAct [facility] Asthma active 6 ProblemAct [facility] Myocardial infarction active 2018-03-28 8 ProblemAct [facility] Acquired hypothyroidism active 2019-04-28 2 ProblemAct [facility] AV block, 3rd degree active 6 ProblemAct [facility] Fibromyalgia active 2018-03-28 8 ProblemAct [facility]
--- OUTSIDE RECORDS SUMMARY | 2025-07-04 13:05 | XMS_ITS | Clinical Summary ---
Author Organization [facility] Address [address] [place] [address] Care Team Providers Care Psychiatric Aide Instructor Name Role Phone Latisha Zuluaga MD Primary Care Provider Allergies Active Allergy Reactions Criticality Noted Date Comments Ibuprofen Hives High 04/14/2018 Medications Medication Sig Dispensed Refills Start Date End Date Status dicyclomine (BENTYL) 10 MG capsule Take 1 capsule (10 mg total) by mouth. 0 04/16/2019 Active donepezil (ARICEPT) 5 MG tablet Take 1 tablet (5 mg total) by mouth. 0 04/16/2019 Active ezetimibe (ZETIA) tablet 10 mg Take 1 tablet (10 mg total) by mouth. 0 04/16/2019 Active hydroCHLOROthiazide (HYDRODIURIL) tablet 25 mg Take 1 tablet (25 mg total) by mouth. 0 10/19/2019 Active metoclopramide (REGLAN) tablet 5 mg Take by mouth. 0 10/07/2023 Active nitroglycerin (NITROSTAT) 0.[address] 1 Tablet under the tongue every 5 minutes as needed for Chest pain. 0 10/14/2023 Active oxybutynin (DITROPAN) 5 MG tablet 0 03/29/2024 Active pregabalin (LYRICA) capsule 150 mg Take by mouth. 0 03/21/2019 Active rosuvastatin (CRESTOR) tablet 5 mg TAKE ONE TABLET BY MOUTH DAILY AT 5PM 0 09/17/2024 Active baclofen (LIORESAL) 5 MG tablet 0 01/06/2024 Active albuterol 108 (90 Base) MCG/ACT inhaler Inhale 2 Puffs into the lungs every 6 hours as needed for Cough or Wheezing. 0 10/08/2021 Active Riboflavin 400 MG CAPS Take 400 mg by mouth daily. 30 capsule 3 09/24/2024 Active Active Problems Problem Noted Date Diagnosed Date Arthritis 06/02/2020 Asthma 06/02/2020 Pacemaker 06/02/2020 Acquired hypothyroidism 05/09/2019 Pure hypercholesterolemia 05/09/2019 AV block, 3rd degree 01/03/2019 Essential hypertension 09/22/2018 Fibromyalgia 04/14/2018 Myocardial infarction 04/14/2018 Family History Medical History Relation Name Comments Diabetes Brother Heart disease Brother Hyperlipidemia Brother Hypertension Brother Heart disease Father Hyperlipidemia Father Hypertension Father Rheumatologic disease Father Diabetes Mother Heart disease Mother Hyperlipidemia Mother Hypertension Mother Cancer Sister Heart disease Sister Hyperlipidemia Sister Hypertension Sister Relation Name Status Comments Brother Father Mother Sister Social History Tobacco Use Types Packs/Day Years Used Date Smoking Tobacco: Never Smokeless Tobacco: Never Tobacco Cessation:Counseling Given: Not Answered Alcohol Use Standard Drinks/Week Comments No 0 (1 standard drink = 0.6 oz pur e alcohol) Sex and Gender Information Value Date Recorded Sex Assigned at Female 08/13/2024 11:45 AM EDT Gender Identity Not on file Sexual Orientation Not on file Job Start Date Occupation Industry Not on file Not on file Not on file Last Filed Vital Signs Vital Sign Reading Time Taken Comments Blood Pressure 161/75 09/24/2024 1:09 PM EDT Pulse 69 09/24/2024 1:09 PM EDT Temperature 35.9 C (96.6 F) 09/24/2024 1:09 PM EDT Respiratory Rate - - Oxygen Saturation - - Inhaled Oxygen Concentration - - Weight 58.5 kg (129 lb) 06/02/2020 9:08 AM EDT Height 157.5 cm (5' 2 ) 06/02/2020 9:08 AM EDT Body Mass Index 23.59 06/02/2020 9:08 AM EDT Plan of Treatment Health Maintenance Due Date Last Done Comments Hepatitis C Screening 1945 COVID-19 Vaccine (#1) 05[birth year]21/1946 Depression Screening 1957 Preventative Health Evaluation 1963 DTap / Tdap / Td (1 - Tdap) 1964 Shingrix-Zoster Vaccine (1 o f 2) 1995 Fall Risk Assessment 2010 Osteoporosis Screening (DEXA Scan) 2010 RSV Adult > 60+ Yrs or (1 - 1-dose 75+ series) 2020 Influenza Vaccine (#1) 2025 Pneumococcal Vaccine Completed 08/20/2015, 11/27/2012 Hepatitis B Vaccines Aged Out No long er eligible based on patient's age to complete this topic RSV Ped < 20 months Aged Out No longe r eligible based on patient's age to complete this topic Care Teams Psychiatric Aide Instructor Relationship Specialty Start Date End Date Latisha Zuluaga MD [address] [place] [address] [address] [place] [id number] PCP - General Internal Medicine 11/14/19
--- OUTSIDE RECORDS SUMMARY | 2025-07-04 13:05 | XMS_ITS | Clinical Summary ---
Author Organization [facility] Address [address] [place] [address] Care Team Providers Care Flying Teacher Name Role Phone Freddy Lofton Primary Care Provider [phone] Source Comments PLEASE NOTE, if this patient is a minor, it may be UNLAWFUL to discuss sensitive information that is contained in these records (such as FAMILY PLANNING, MENTAL HEALTH or SUBSTANCE ABUSE) with the minor patient's parent or other person without the patient's specific authorization.[facility] Allergies Active Allergy Reactions Criticality Noted Date Comments Ibuprofen Hives High 04/14/2018 Medications RESTASIS 0.05 % ophthalmic emulsion INSTILL 1 DROP BOTH EYES TWICE A DAY DIRECTED 3 8 Active LYRICA 150 mg capsule TAKE ONE CAPSULE BY MOUTH 3 TIMES A DAY 90 Cap 9 Active donepezil (ARICEPT) 5 mg tabletIndications :Irritable bowel syndrome with both constipation and diarrhea TAKE 1 TABLET BY MOUTH EVERYDAY AT BEDTIME 30 Tab 5 9 Active hydroCHLOROthiazi de (HYDRODIURIL) 12.5 mg tabletIndications :Essential hypertension Take 1 Tab by mouth once daily 30 Tab 5 9 Active levothyroxine (SYNTHROID, LEVOTHROID) 75 mcg tabletIndications :Hypothyroidism, unspecified type Take 1 Tab by mouth once daily 30 Tab 5 9 Active dicyclomine (BENTYL) 10 mg capsuleIndication s:Irritable bowel syndrome with both constipation and diarrhea Take 1 Cap by mouth 2 (two) times daily 60 Cap 5 9 Active ezetimibe (ZETIA) 10 mg tabletIndications :Hypercholesterem ia Take 1 Tab by mouth once daily 30 Tab 5 9 Active Active Problems Problem Noted Date Diagnosed Date AV block, 3rd degree ([facility]) 01/03/2019 Essential hypertension 09/22/2018 Myocardial infarction ([facility]) 04/14/2018 Fibromyalgia 04/14/2018 Pacemaker Heart attack ([facility]) Asthma ([facility]) Arthritis Social History Tobacco Use Types Packs/Day Years Used Date Smoking Tobacco: Former Smokeless Tobacco: Never Alcohol Use Standard Drinks/Week Comments No 0 (1 standard drink = 0.6 oz pur e alcohol) Social Connections Answer Date Recorded Social Connections and Isolation 0 07/23/2019 Financial Resource Strain Answer Date R ecorded Financial Resource Strain 0 2018 Stress Answer Date Recorded Stress 0 07/23/2019 Physical Activity Answer Date Recorded Physical Activity 0 07/23/2019 Food Insecurity Answer Date Recorded Food 0 07/23/2019 Transportation Needs Answer Date Record ed Transportation 0 07/23/2019 Housing Stability Answer Date Recorded Housing 0 07/23/2019 Safety and Environment Answer Date Uziel rded Safety 0 07/23/2019 Utilities Answer Date Recorded Utilities 0 07/23/2019 Employment Answer Date Recorded Employment 0 07/23/2019 Comments No Sex and Gender Information Value Date Recorded Sex Assigned at Female 04/14/2018 8:15 AM PDT Legal Sex Female 10:09 AM PDT Gender Identity Female 04/14/2018 8:15 AM PDT Sexual Orientation Straight 04/14/2018 8: 15 AM PDT Last Filed Vital Signs Vital Sign Reading Time Taken Comments Blood Pressure 140/68 04/16/2019 9:12 AM EDT Pulse 74 04/16/2019 9:12 AM EDT Temperature 36.9 C (98.5 F) 04/16/2019 9:12 AM EDT Respiratory Rate 18 04/16/2019 9:12 AM EDT Oxygen Saturation - - Inhaled Oxygen Concentration - - Weight 62.6 kg (137 lb 14.4 oz) 04/16/2019 9:12 AM EDT Height 154.9 cm (5' 1 ) 04/16/2019 9:12 AM EDT Body Mass Index 26.06 04/16/2019 9:12 AM EDT Plan of Treatment Health Maintenance Due Date Last Done Comments Hepatitis C Screening 1945 Tobacco Screening 1945 Imm-DTaP/Tdap/Td (1 - Tdap) 1964 Imm-Pneumococcal 50+ (1 of 2 - PCV) 1964 CT Colonography 1990 FIT/gFOBT 1990 Fecal DNA 1990 Flexible Sigmoidoscopy 1990 Imm-Zoster, Recombinant (1 of 2) 1995 Bone Density Screening 2010 Falls Prevention 2010 Annual Wellness (Adult): Indicated (All Coverage) 03/2804/14/2018 TSH Monitoring 04/14/2019 04/14/2018 Imm-RSV (adult) (1 - 1-dose 75+ series) 2020 [id number]-15 ( season) 2024 Alcohol and Drug Screen 11/28/2024 04/14/2018 Depression Annual Screen 11/28/2024 04/14/2018 Imm-Influenza (#1) 2025 01/03/2019 Colonoscopy 03/30/2027 03/30/2017 Colorectal Cancer Screening 03/30/2027 Procedures Procedure Name Priority Date/Time Associated Diagnosis Comments THYROID CASCADE PROFILE Routine 04/14/2018 11:30 AM EDT Routine adult health maintenance from Last 3 Months or Most Recently Relevant to Health Maintenance Results * THYROID CASCADE PROFILE (04/14/2018 11:30 AM EDT) TSH CASCADE 0.51 0.40 - 4.00 uIU/ml [facility] Blood specimen (specimen) Blood / Unknown 04/14/2018 11:30 AM EDT 04/14/2018 11:45 AM EDT Narrative [facility] - 04/14/2018 7:33 PM EDT [employer] [address] [place] [address] PT ID [id number] ORD# [id number] [facility] - BLOOD DRAW Final Result [facility] [address] [place] [address], from Last 3 Months or Most Recently Relevant to Health Maintenance Insurance [employer] Care Teams Flying Teacher Relationship Specialty Start Date End Date Freddy Lofton PA [address] [place] [address] PCP - General Internal Medicine 03/20/18
--- NOTE | 2025-07-04 13:06 | MHC.OFFVIS ---
Intake Visit Reasons: 2 Months Accompanied by: Daughter Allergies ibuprofen Allergy (Unknown, Verified 07/04/25 13:11) Unknown Medication List - Last Reconciled 07/04/25 by Kiki Castro CNP baclofen 5 mg PO BEDTIME PRN donepezil 5 mg PO BEDTIME duloxetine 30 mg PO QAM famotidine 40 mg PO QAM galcanezumab-gnlm (Emgality Pen) 120 mg subcut Q4W hydrochlorothiazide 25 mg PO QAM levothyroxine 50 mcg PO DAILY melatonin 5 mg PO BEDTIME oxybutynin chloride 5 mg PO TID riboflavin (vitamin B2) 400 mg PO DAILY rosuvastatin 5 mg PO QPM HPI Comments Details: 79-year-old woman, a retired RN, with hypertension, hyperlipidemia, CAD with history of ND, daily headaches and short term memory problems worsening around 2022. She was living with her daughter who did everything including cooking, cleaning, and driving. She stopped driving around 2020 because of getting lost. She was doing okay. Memory was about the same. They were in the process of moving in with her granddaughter, so she has been packing some things. She spent most of her time watching TV or playing on her phone. Occasionally, she helped with cleaning around the house when she felt up to it. She was still having headaches and some dizziness, and was recently started on Emgality. Mood was not so good. She felt she was not able to do much anymore because of pain related to headaches and arthritis, and cognitive issues. Sleep was still not so good with difficulty falling asleep and staying asleep. No falls. [facility] Medical History (Updated 07/04/25 @ 13:27 by Kiki Castro CNP) Dementia MCI (mild cognitive impairment) Review of Systems Const Denies chills, Denies daytime sleepiness, Reports difficulty sleeping, Denies fatigue, Denies fever(s), Denies frequent falls, Reports headache(s), Denies increased appetite, Denies poor appetite, Denies snoring, Denies weakness, Denies weight gain and Denies weight loss Eyes Denies loss of vision ENT Denies vertigo, Denies dizziness, Reports headache(s) and Denies neck pain Card Denies chest pain at rest, Denies chest pain with activity, Denies syncope, Denies leg edema, Denies palpitations, Denies dyspnea and Denies dyspnea on exertion Resp Denies cough, Denies dyspnea, Denies dyspnea on exertion and Denies snoring GI Denies abdominal pain, Denies constipation, Denies heartburn, Denies diarrhea and Denies nausea Denies urinary frequency, Denies urinary incontinence and Denies urinary urgency Musc Denies abnormal gait, Denies back pain, Denies myalgias, Denies arthralgias, Denies neck pain, Denies numbness and Denies tingling Neuro Denies abnormal gait, Denies vertigo, Denies dizziness, Denies syncope, Denies frequent falls, Reports headache(s), Denies lack of coordination, Denies loss of vision, Reports memory loss, Denies numbness, Denies Other visual disturbances, Denies restless legs, Denies seizure-like activity, Denies tingling, Denies paresthesias, Denies tremor(s) and Denies weakness Psych Denies anxiety, Denies depression, Denies auditory hallucinations, Reports memory loss and Denies visual hallucinations Endo Denies fatigue and Denies palpitations Physical Exam Const Other: General Appearance:? normal, in no acute distress. Heart:? S1, S2 normal, no murmurs. Lungs:? clear anteriorly and posteriorly. Musculoskeletal:? normal. Extremities:? no edema. Psych:? alert, as below. Neuro Other: Abnormal Neurological Findings:?MMSE 26/30. Mental Status: alert, as below. Cranial Nerves: Pupils are equal, round, and reactive to light. External ocular muscles are intact. Visual stratton are full, no ptosis. Face is symmetrical, no facial weakness or droop. Facial sensations are normal. Tongue protrudes in midline. Palate elevates symmetrically. Shoulder shrugging is normal Motor Examination: Normal muscle tone, bulk and strength. No atrophy or fasciculations. No drift of the extended upper extremities. DTR 2+. Plantars are flexor. Sensory Exam: Normal light touch, temperature, pinprick, vibration, and joint-position sensations. Rhomberg sign is absent. Coordination: No ataxia. No titubation. Gait Exam: Within normal limits. Cerebellar Signs: Qxqpap-vd-eisw is okay. Extrapyramidal System: No tremor, rigidity with normal facial expressions. No bradykinesia. No bradyphrenia. Normal arm swing and posture. No propulsion or retropulsion. Speech: Normal. No dysphasia or dysarthria. MMSE Level of Consciousness: Alert. Orientation: Does not know year, month, date, day, or season. Knows correct city, county and state. Knows correct location and floor. Registration: Able to register 3 objects. Attention: Serial 7's performed accurately to 86 Recall: Able to recall 2 out of 3 objects. Language: Normal spontaneous speech, fluency, repetition, naming, comprehension, reading, and writing. Total Score: /30. Results Reviewed Results Reviewed: Laboratory Tests 05/03/25 09:11 ESR 18 Sodium 142 Potassium 3.8 Chloride 102 Carbon Dioxide 34 H Anion Gap 10 L BUN 18 H Creatinine 0.86 Estimated GFR > 60 Random Glucose 98 Calcium 10.6 H Vitamin B12 688 Folate 9.5 Free T4 0.95 EEG:? Date?05/23/25.? Description:?This is a routine waking EEG using the 10-20 electrode placement system. ?The waking background activity consists of low-voltage fast frequency seen diffusely intermixed with low-voltage posterior 10 hertz alpha frequency.?drowsiness is characterized by diffuse theta slowing.? During sleep symmetrical frontal central sleep spindles and vertex sharp transients develop over both hemispheres. ?Photic stimulation is without activation.?Hyperventilation produces no change in the background activity. ?No focal, lateralizing or paroxysmal discharges are seen..? Impression:??awake and sleep EEG is within normal limits.? Assessment & Plan Assessment & Plan (1) MCI (mild cognitive impairment): Code(s): G31.84 - Mild cognitive impairment of uncertain or unknown etiology Category: Medical Plan: Lab and EEG results reviewed. She did not have CT scan done and test was requested again. Increase donepezil 10mg 1 tablet at bedtime. Stay physically and socially active. (2) Depression with anxiety: Code(s): F41.8 - Other specified anxiety disorders Category: Medical Plan: Start sertraline 25mg 1 tablet daily, use/side effects reviewed. Orders: Orders CT head/brain wo IV con Today G31.84 - Mild cognitive impairment of uncertain or unknown etiology Medications: New donepezil 10 mg PO BEDTIME 90 tabs 1RF 90 days sertraline 25 mg PO DAILY 90 tabs 0RF 90 days Coding Level of Care Code Est Pt Level 4 (09185) Diagnoses MCI (mild cognitive impairment) G31.84 Depression with anxiety F41.8
== END 2025-07-04 13:36 | disposition home or self-care (01) ==
LOC: HO.HSM 13:01
PROVIDERS: PCP Internal Medicine; Referring Provider Internal Medicine; Visit Provider Registered Nurse
DX: G31.84 Mild cognitive impairment of uncertain or unknown etiology (principal); F41.8 Other specified anxiety disorders
CPT/HCPCS: 99214

== ENCOUNTER → 2025-07-04 13:00 | Outpatient (BNVA) | payer MEDICARE, SELFPAY | PROVIDERS: PCP Internal Medicine; Referring Provider Internal Medicine; Visit Provider Registered Nurse | DX: Z71.2 Person consulting for explanation of examination or test findings (principal); G31.84 Mild cognitive impairment of uncertain or unknown etiology; F41.8 Other specified anxiety disorders | CPT/HCPCS: 99212 ==

== ENCOUNTER 2025-08-03 09:13 | Outpatient (REF) | payer MEDICARE, SELFPAY ==
--- OUTSIDE RECORDS SUMMARY | 2024-09-24 12:58 | XMS_ITS | Encounter Summary ---
Author Organization [facility] [place] [address] Care Team Providers Care Drilling Field Professional Name Role Phone Latisha Zuluaga MD Primary Care Provider [phone] Encounter Details Date Type Department Care Team (Late st Contact Info) Description 09/24/2024 12:58 PM EDT Hospital Encounter TH HISTORIC ENCOUNTERS [facility] ONLY Burak Larson MD [address] [place] [phone] Social History Tobacco Use Types Packs/Day Years Used Date Smoking Tobacco: Former Smokeless Tobacco: Never Alcohol Use Standard Drinks/Week Comments No 0 (1 standard drink = 0.6 oz pur e alcohol) Comments Unknown Sex and Gender Information Value Date Recorded Sex Assigned at Not on file Legal Sex Female 2:14 AM EST Gender Identity Not on file Sexual Orientation Not on file documented as of this encounter Last Filed Vital Signs Vital Sign Reading Time Taken Comments Blood Pressure 161/75 09/24/2024 1:09 PM EDT Sit ting Left arm Pulse 69 09/24/2024 1:09 PM EDT Temperature - - Respiratory Rate - - Oxygen Saturation - - Inhaled Oxygen Concentration - - Weight 58.5 kg (129 lb) 06/02/2020 9:08 AM EDT Height 157.5 cm (5' 2 ) 06/02/2020 9:08 AM EDT Body Mass Index 23.59 06/02/2020 9:08 AM EDT documented in this encounter Progress Notes * Burak Larson MD - 09/24/2024 1:00 PM EDT HPI: Salima Wong is a 78 y.o. year old female referred to our center by Latisha Zuluaga MD for evaluation and management of Headache . 78 yo female with PMH Asthma , heart disease she has a pacemaker , HTN, Hypothyroid , RA history ofmyocardial infarction Headache: Patient presents for evaluation of headache. Symptoms began about college years , then was manageable , which worsen after IN episode , 3 times a month . Generally, the headaches last aboutseveral hours and occur 3 times a month . The headaches do not seem to be related to any time of the day. The headaches are usually moderate, pounding and throbbing and are located in bitemporal , head parathesias. The patient rates her most severe headaches a 10 on a scale from 1 to 10. Recently, the headaches have been increasing in both severity and frequency. Work attendance or other daily activities are affected by the headaches. Precipitating factors include: none which have been determine d. The headaches are usually preceded by an aura consisting of blurry vision and photopsias. Associated neurologic symptoms: dizziness and nausea , photophobia , phonophobia . The patient denies muscle weakness, numbness of extremities, speech difficulties and vomiting in the patient services assistant. Home treatment has included acetaminophen, darkening the room, resting and sleeping with little improvement. Other history includes: nothing pertinent. Family history includes migraine headaches in father. She does experience blurry vision , and jaw pain and claudication ? , proximal muscle weakness She has been having trouble with sleep and staying a sleep diagnosed with insomnia, she denies any signs or symptoms concerning for sleep apnea denies any snoring or stop breathing at night Patient is currently getting physical therapy for her knee which has been very helpful for her mobility Past Medical History: Diagnosis Date ??? Asthma ??? Cardiac pacemaker ??? Heart disease ??? Hypertension ??? Hypothyroidism ??? Rheumatoid arthritis (HCC) Current Outpatient Medications Medication Sig Dispense Refill ??? albuterol 108 (90 Base) MCG/ACT inhaler Inhale 2 Puffs into the lungs every 6 hours as needed for Cough or Wheezing. ??? baclofen (LIORESAL) 5 MG tablet ??? dicyclomine (BENTYL) 10 MG capsule Take 1 capsule (10 mg total) by mouth. ??? donepezil (ARICEPT) 5 MG tablet Take 1 tablet (5 mg total) by mouth. ??? ezetimibe (ZETIA) tablet 10 mg Take 1 tablet (10 mg total) by mouth. ??? hydroCHLOROthiazide (HYDRODIURIL) tablet 25 mg Take 1 tablet (25 mg total) by mouth. ??? metoclopramide (REGLAN) tablet 5 mg Take by mouth. ??? nitroglycerin (NITROSTAT) 0.[address] 1 Tablet under the tongue every 5 minutes as needed for Chest pain. ??? oxybutynin (DITROPAN) 5 MG tablet ??? pregabalin (LYRICA) capsule 150 mg Take by mouth. ??? rosuvastatin (CRESTOR) tablet 5 mg TAKE ONE TABLET BY MOUTH DAILY AT 5PM No current facility-administered medications for this visit. Allergies Allergen Reactions ??? Ibuprofen Hives Social history: Tobacco: former smoker , quit before collage Alcohol No Drug use: N0 Processed foods/high Sodium diet:No Exercise habits: She is not very active She worked as nurse in past Family history: There is no significant family history of multiple sclerosis, rheumatoid arthritis,type 1 diabetes, lupus, or other autoimmune diseases. Neurologic Exam: BP 161/75 (BP Location: Left arm, Patient Position: Sitting) Pulse 69 Temp 96.6 ??F (35.9 ??C) (Temporal) MS: AOx3 CN: perrla V1-3 intact to LT, face symmetric, bilateral SCM/trapezius 5/5, tongue/uvula/palate midline Motor: 5/5 in all extremities weaker on the lower extremity 4/5 limited by knee pain Sensation: Intact to light touch, temperature, and vibration in all extremities Reflexes: 2+ in bilateral biceps and patellae, toes downgoing bilaterally Cerebellar: FNF intact bilaterally, FFM intact bilaterally, unable to fall Both Lower Extremity RAMintact bilaterally, tandem gait abnormal romberg negative Labs: Imaging: All images were reviewed by me. CT head mild loss no concerning finding A/P: Salima Pritchettual is a 78 y.o. year old female referred to our center by Latisha Zuluaga MD for evaluation and management of migraine headaches patient with been having headaches since college years but you got worse recently she does experience visual auras she does have photophobia phonophobia patient does experience 3 headaches a month maximum but sometimes it is prolonged discussed withthe patient with her comorbidities and the history of heart disease we will try to avoid triptans as rescue therapy patient was handed samples for Ubrelvy 50 mg and reassess Prolonged discussion with the patient with lifestyle modification to keep her more active mentally and physically she agreed and will consider -will order basic labs /vitamin level and inflammatory markers Patient to keep a headache calendar for better quantification of the headache days If headache persist despite medication we will consider getting MRI brain without contrast Riboflavin 400mg daily uberlvy abortive Take one tablet as needed for headaches, may repeat in 2 hours, do not exceed morethan 2 per day Counseled on avoidance of migraine triggers, particularly sleep deprivation, missed meals, dehydration, certain foods and avoiding excessive caffeine/NSAIDs. Insomnia: Follow-up with PCP for further recommendation as a crucial for her migraine headaches -RTC in 6-8 wks for follow up The patient and I discussed the clinical picture during today's appointment. Additional time was spent prior to the actual appointment reviewing records, lab values and imaging results and preparing documentation for today's visit. There was also time spent following the in person visit documenting, arranging for further diagnostic testing and follow-up appointments. The entire time spent in thisprocess was greater than 45 minutes. The majority of the actual [id number] visit was spent counseling the patient with respect to the current neurological picture. Burak Larson MD documented in this encounter Plan of Treatment Upcoming Encounters Date Type Department Care Team (Late st Contact Info) Description 10/09/2025 1:00 PM EST Office Visit [facility] [address] [place] [phone] Carmen Reina PA [facility] [place] [phone] documented as of this encounter Goals Goal Patient Goal Type Associated Problems Recent Progress Patient-Stated? Author LTGs General No Marco Owens, PT Note: Pt will complete 6 minute walk with no left knee pain - Not Met Pt will ascend/descend 12 steps with reciprocal stepping pattern and no left knee pain - not met Pt will be independent with HEP - Met documented as of this encounter Visit Diagnoses Not on filedocumented in this encounter Care Teams Drilling Field Professional Relationship Specialty Start Date End Date Latisha Zuluaga MD [address] [phone] PCP - General 09/24/24 documented as of this encounter
--- OUTSIDE RECORDS SUMMARY | 2025-08-02 13:40 | XMS_ITS | Encounter Summary ---
Author Organization [facility] Address [address] [place] [address] Care Team Providers Care Stick Puller Name Role Phone Latisha Zuluaga MD Primary Care Provider [phone] Reason for Visit * Reason Comments Follow-up * Consultation (Routine) - Authorized Specialty Diagnoses / Procedures Referred By Gerry daly Referred To Contact Cardiology Diagnoses AV block, 3rd degree (CMS/HCC V24, CMS/HCC V28) Coronary artery disease due to calcified coronary lesion Laitsha Zuluaga MD [address] [facility] [address] [place] [address] Phone: tel: fax: [facility] Cardiology [facility] [address] [facility] [address] [place] [address] Phone: tel: fax: Referral ID Status Reason Start Date Expiration Date Visits Requested Visits Authorized [id number] Authorized Specialty Services Required 12/25/2024 12/25/2025 6 6 Encounter Details Date Type Department Care Team ([facility] st Contact Info) Description 08/02/2025 1:40 PM EDT Office Visit [facility] Cardiology [facility] [address] [facility] [address] [place] [address] Oc Khan NP [address] [place] [address] [address] [place] [address] Chest pain on exertion (Primary Dx); Coronary artery disease due to calcified coronary lesion; Old [place] (myocardial infarction) Social History Tobacco Use Types Packs/Day Years [...] Sign Reading Time Taken Comments Blood Pressure 142/62 08/02/2025 1:53 PM EDT Pulse 60 08/02/2025 1:53 PM EDT Temperature - - Respiratory Rate - - Oxygen Saturation 100% 08/02/2025 1:53 PM EDT Inhaled Oxygen Concentration - - Weight 55.5 kg (122 lb 4.8 oz) 08/02/2025 1:53 P M EDT Height 157.5 cm (5' 2 ) 08/02/2025 1:53 PM EDT Body Mass Index 22.37 08/02/2025 1:53 PM EDT documented in this encounter Ordered Prescriptions Prescription Sig Dispense Quantity Refills Last Filled Start Date End Date metoprolol succinate (TOPROL-XL) 25 mg 24 hr tabletIndications: Chest pain on exertion,Coronary artery disease due to calcified coronary lesion Take 0.5 tablets (12.5 mg total) by mouth 1 (one) time each day. Do not crush or chew. 45 each 08/02/2025 isosorbide mononitrate (IMDUR) 30 mg 24 hr tabletIndications: Chest pain on exertion,Coronary artery disease due to calcified coronary lesion Take 1 tablet (30 mg total) by mouth 1 (one) time each day. Do not crush or chew. 90 each 08/02/2025 6 documented in this encounter Plan of Treatment Upcoming Encounters Date Type Department Care Team (Late st Contact Info) Description 10/09/2025 1:00 PM EST Office Visit [facility] [address] [facility] [address] [place] [address] Carmen Reina PA [address] [place] [address] Scheduled Orders Name Type Priority Associated Diagnoses Orde r Schedule CBC and differential Lab Routine Chest pain on exertion Coronary artery disease due to calcified coronary lesion Expected: 08/02/2025, Expires: 08/02/2026 Basic metabolic panel Lab Routine Chest pain on exertion Coronary artery disease due to calcified coronary lesion Expected: 08/02/2025, Expires: 08/02/2026 Prothrombin time with INR Lab Routine Chest pain on exertion Coronary artery disease due to calcified coronary lesion Expected: 08/02/2025, Expires: 08/02/2026 CBC auto differential Lab Routine Chest pain on exertion Coronary artery disease due to calcified coronary lesion Ordered: 08/02/2025 documented as of this encounter Goals Goal [...] as of this encounter Visit Diagnoses Diagnosis Chest pain on exertion- Primary Unspecified chest pain Coronary artery disease due to calcified coronary lesion [place] (myocardial infarction) Old myocardial infarction documented in this encounter Care Teams Stick Puller Relationship Specialty Start Date End Date Latisha Zuluaga MD [address] [place] [address] [address] [place] [address] PCP - General 09/24/24 documented as of this encounter
--- NOTE | ~2025-08-03 | CT_ITS ---
CLINICAL HISTORY: G31.84 - Mild cognitive impairment of uncertain or unknown etiology CT head without contrast Comparison: None Findings: No acute intracranial hemorrhage, acute major vascular distribution infarct, intracranial mass, midline shift or hydrocephalus. No extra-axial fluid collection. Mild periventricular and subcortical white matter hypoattenuation, nonspecific, most frequently ascribed to chronic small vessel ischemic disease. Age-appropriate global atrophy. Intracranial vascular calcifications present. Visualized orbits are within normal range. Visualized paranasal sinuses, and mastoid air cells are unremarkable. The cranium appears intact. Superficial soft tissue is unremarkable. Impression: 1. No acute intracranial finding. This document has been electronically signed by: Roxanna Shi MD on 08/05/2025 10:12:11
--- OUTSIDE RECORDS SUMMARY | 2025-08-03 09:15 | XMS_ITS | Continuity of Care Document ---
Author Organization [facility] [address] [place] [address] Phone [phone] Care Team Providers Care Spout Tender Name Role Phone Latisha Zuluaga M.D. Care Team Information Receive r [phone] Problems Active Problems Provider Date H/O: depression [...] M.D. O nset: 12/29/2022 Pure hypercholesterolemia Lima Castañeda Onset: 12/29/2022 Fibromyalgia Omar Núñez M.D. Onset: [...] SIG Qnty Indications Ordering Provider Date Levothyroxine Hsjlmw39qms Capsules take 1 tablet by mouth 6 days per week Omar Núñez M.D. 10/07/2023 Metoclopramide HCL5mg Tablets 1 tab by mouth three times a day Omar Núñez M.D. 10/07/2023 Cdezckzodi730gy Capsules take 1 capsule by mouth twice a day Omar Núñez M.D. 01/11/2023 Donepezil HCL5mg Tablets Take 1 Tablet By Mouth Every Day AT Bedtime For 180 Days Latisha Zuluaga M.D. Euzewqqezqojjzuhxad22yw Tablets Take 1 Tablet By Mouth Every Day Mandy Mason PA-C Oxybutynin Wnbxkpsi0xr Tablets Take 1 Tablet By Mouth Three Times A Day Latisha Zuluaga M.D. Srgkpnjj7rn Tablets Take 1 Tablet By Mouth AT Bedtime as Needed For Other. Latisha Zuluaga M.D. Kulqkcdnx28kb Tablets Take 1 Tablet By Mouth Every Day Latisha Zuluaga M.D. Neupnayhkz44ai Tablets Take 1 Tablet By Mouth AT Bedtime as Needed For Burping Unknown Rosuvastatin Xlhctpl1zs Tablets Take 1 Tablet By Mouth Every Day Byron Wagoner M.D. Duloxetine QZO77cy Caps DR Part Take 1 Capsule By Mouth Daily For 360 Days. Marcio Daniel M.D. Jkjnjryjyk65mn Capsules DR Take 1 Capsule By Mouth Twice A Day Unknown Nrpvqwevoba7tu Tablets Dispers Take 1 Tablet By Mouth [...] H/L Range N ote Free T4 10/07/2023 [facility] Free T4 1.60 ng/dL (0.70-1.8 0) TSH 10/07/2023 [facility] TSH 0.78 uIU/mL (0.4-4.2) TSH With Reflex To FT4 03/15/2023 [facility] TSH With Reflex To FT4 <pending> TSH With Reflex To FT4 03/08/2023 [facility] TSH With Reflex To FT4 0.15 uIU/mL Low (0.4-4.2) Anti Thyroid Peroxidase AB 03/08/2023 [facility] Anti Thyroid Peroxidase AB 474.3 IU/mL High (<5.6) 1 Free T4 03/08/2023 [facility] Free T4 1.56 ng/dL (0.70-1.8 0) 1 Antibody measurement represents one parameter in a multicriteria diagnostic process. Correlate results with clinical presentation. This test was performed on the Wasabi 3D immunoassay system. Medical Devices Description No Information [...]
--- OUTSIDE RECORDS SUMMARY | 2025-08-03 09:15 | XMS_ITS | Encounter Summary ---
Author Organization [facility] [place] [address] Care Team Providers Care Export Agent Name Role Phone Latisha Zuluaga MD Primary Care Provider [phone] Encounter Details Date Type Department Care Team (Late st Contact Info) Description 08/02/2025 Telephone [facility] [address] [place] [address] [place] [phone] Oc Khan NP [address] [place] [address] Dr [address] [place] [phone] Social History Tobacco Use Types Packs/Day Years [...] as of this encounter Progress Notes * Minda Valentine - 08/02/2025 2:27 PM EDT Please obtain PA for L. Heart cath ? PCI [id number] and [address]47 at [facility] with Dr Avila . DX R94.39, R07.1 Thank You * Oc Khan NP - 08/02/2025 2:18 PM EDT Patient needs LHC at [facility] Left heart catheterization: Diagnosis: abnormal stress test, chest pain Anticoagulation: No Diabetic: No Dialysis: No Lovenox needed: No Contrast Allergy: No Hydration needed: No Premedication needed: No documented in this encounter Plan of Treatment Upcoming Encounters Date Type Department Care Team (Late st Contact Info) Description 10/09/2025 1:00 PM EST Office Visit [facility] [address] [facility] [address] [place] [address] Carmen Reina PA [address] [place] [phone] documented as of this encounter Goals Goal [...] on filedocumented in this encounter Care Teams Export Agent Relationship Specialty Start Date End Date Latisha Zuluaga MD [address] [facility] [address] [place] [address] PCP - General 09/24/24 documented as of this encounter
--- OUTSIDE RECORDS SUMMARY | 2025-08-03 09:15 | XMS_ITS | Clinical Summary ---
Author Organization [facility] Address [address] [place] [address] Care Team Providers Care Docent Coordinator Name Role Phone Latisha Zuluaga MD Primary Care Provider [phone] Allergies Active Allergy Reactions Criticality Noted Date [...] age to complete this topic Care Teams Docent Coordinator Relationship Specialty Start Date End Date Latisha Zuluaga MD [address] [place] [address] [address] [place] [phone] PCP - General Internal Medicine 11/14/19
--- OUTSIDE RECORDS SUMMARY | 2025-08-03 09:15 | XMS_ITS ---
Author Name aJmes LEWIS Ibisreginasherly del toro German Address [address] [place] [id number] Phone [phone] [facility] Care Team Providers Care Bulkhead Carpenter Name Role Phone JamesNithin Unavailable [phone] Reason for Referral Not Available Allergies, adverse [...] MOUTH EVERY DAY 2023-01-06 No Data Available [facility] COVID-19 Antigen Rap id Home Test kit [...] ECCA Update 07/06/23:Follows up with PCP and Ecdis N Navigation Operator.Denies any current or recent symptoms.No need to [...] CB 24/[address] Dr[address] Jacobs, email engineer Hypothyroidism Active 2022-09-15 N/A StableFoll owed by PCP, Dr. Marcio Srinivasan meds as prescribedFollows up with PCP and Consumer Studies Professor.:Levothyrox ine Sodium Doing well on current treatment.Denies [...] completePacemaker Active 2023-07-06 N/A StableFollows up with Ecdis N Navigation Operator.Has pacemaker in place. Denies any acute complaint.Continue treatment as prescribed, follow up as instructed.Contact CB 20/06 as needed. Continue f/u with cardiology. Hypertension Active 2023-07-06 N/A StableFollow s up with PCP and Ecdis N Navigation Operator. Reports BP has been well controlled.hydroCHLOROthiaz zan [...] attacks/ Increased agitationPlanned intervention: Transfer member to [address] [place] [address]/ Hydroxyzine (Vistaril) 25mg PO q6h PRN anxiety/ [...] Pain Assessment - NO pain present (1126F) [facility] [place]20[place] Pain Assessment - NO pain present (1126F) [facility] [place] Pain Assessment - NO pain present (1126F) [facility] [place] Pain Assessment - NO pain present (1126F) [facility] [place] Pain Assessment - NO pain present (1126F) [facility] [place] Pain Assessment - NO pain present (1126F) [facility] [place] Pain Assessment - NO pain present (1126F) [facility] [place] 09/16/2022 Gastro-esophageal reflux disease without esophagitisHypothyroidism, unspecifiedHyperlipidemia, unspecifiedOveractive bladderUnspecified asthma, uncomplicatedMajor depressive disorder, single episode, moderateAngina pectoris, unspecifiedUnspecified dementia without behavioral disturbance Estab. patient 30-39min; chronic exacerbation, 2 stable chronic or 1 acute illness add add modifier 95 for video, (do not use for phone, instead use 62507-38) [facility], ([place] 07/06/2023 Major depressive disorder, single episode, moderateAngina [...] (do not use for phone, instead use 17753-91) [facility], [place] 07/06/2023 Estab. patient 30-39min; chronic exacerbation, 2 stable chronic or 1 acute illness add add modifier 95 for video, (do not use for phone, instead use 45057-05) [facility], [place] 07/06/2023 Estab. patient 30-39min; chronic exacerbation, 2 stable chronic or 1 acute illness add add modifier 95 for video, (do not use for phone, instead use 39710-20) [facility], [place] 07/06/2023 Estab. patient 30-39min; chronic exacerbation, 2 stable chronic or 1 acute illness add add modifier 95 for video, (do not use for phone, instead use 17147-71) [facility], [place] 07/06/2023 Estab. patient 30-39min; chronic exacerbation, 2 stable chronic or 1 acute illness add add modifier 95 for video, (do not use for phone, instead use 50420-63) [facility], [place] 07/06/2023 Estab. patient 30-39min; chronic exacerbation, 2 stable chronic or 1 acute illness add add modifier 95 for video, (do not use for phone, instead use 81296-52) [facility], [place] 07/06/2023 Estab. patient 30-39min; chronic exacerbation, 2 stable chronic or 1 acute illness add add modifier 95 for video, (do not use for phone, instead use 86954-35) [facility], ([place]) 07/06/2023 Unlisted special service; to be used for medical record reviews and reporting CPTII codes (1111F, etc) [facility] ([place] 09/29/2023 Other specified health statu s Unlisted special service; to be used for medical record reviews and reporting CPTII codes (1111F, etc) [facility] [place] 09/29/2023 Unlisted special service; to be used for medical record reviews and reporting CPTII codes (1111F, etc) [facility] [place] 09/29/2023 Estab. patient 30-39min; chronic exacerbation, 2 stable chronic or 1 acute illness add add modifier 95 for video, (do not use for phone, instead use 72071-96) [facility], [place] 03/20/2024 Gastro-esophageal reflux disease without esophagitisHypothyroidism, [...] (do not use for phone, instead use 86961-39) [facility] [place] 03/20/2024 Estab. patient 30-39min; chronic exacerbation, 2 stable chronic or 1 acute illness add add modifier 95 for video, (do not use for phone, instead use 92145-71) [facility] [place] 03/20/2024 Estab. patient 30-39min; chronic exacerbation, 2 stable chronic or 1 acute illness add add modifier 95 for video, (do not use for phone, instead use 55450-23) [facility], [place] 03/20/2024 Estab. patient 30-39min; chronic exacerbation, 2 stable chronic or 1 acute illness add add modifier 95 for video, (do not use for phone, instead use 81721-75) [facility], [place] 03/20/2024 Estab. patient 30-39min; chronic exacerbation, 2 stable chronic or 1 acute illness add add modifier 95 for video, (do not use for phone, instead use 47124-71) [facility], [place] 03/20/2024 Estab. patient 30-39min; chronic exacerbation, 2 stable chronic or 1 acute illness add add modifier 95 for video, (do not use for phone, instead use 81599-05) [facility], [place] 03/20/2024 Estab. patient 30-39min; chronic exacerbation, 2 stable chronic or 1 acute illness add add modifier 95 for video, (do not use for phone, instead use 90149-87) [facility] [place] 03/20/2024 Estab. patient 30-39min; chronic exacerbation, 2 stable chronic or 1 acute illness add add modifier 95 for video, (do not use for phone, instead use 55776-41) [facility] [place] 03/20/2024 Estab. patient 30-39min; chronic exacerbation, 2 stable chronic or 1 acute illness add add modifier 95 for video, (do not use for phone, instead use 06534-73) [facility] [place] 03/20/2024 Vital Signs Date of Collection [...] tive Time Current Smoking Status Former smoker 6 Sex Female Gender identity Woman History of [...] (do not use for phone, instead use 23746-29) 50094 2022-09-16 No Data Available No Data Availa ble Estab. patient 30-39min; chronic exacerbation, 2 stable chronic or 1 acute illness add add modifier 95 for video, (do not use for phone, instead use 23929-70) 82151 2023-07-06 No Data Available No Data Availa [...] reviews and reporting CPTII codes (1111F, etc) 31043 2023-09-29 No Data Available No Data Availa ble SBP < 130 (3074F) 3074F 2023-09-29 No Data Available No Data Available DBP 80-89 (3079F) 3079F 2023-09-29 No Data Available No Data Available Estab. patient 30-39min; chronic exacerbation, 2 stable chronic or 1 acute illness add add modifier 95 for video, (do not use for phone, instead use 16303-64) 60375 2024-03-20 No Data Available No Data Availa [...] prescribedECCA Update 07/06/23:Follows up with PCP and Consumer Studies Professor.Taking:Levothyroxine Sodium 50 MCG Tab TAKE 1 TAB [...] ECCA Update 07/06/23:Follows up with PCP and Ecdis N Navigation Operator.Denies any current or recent symptoms.No need to [...] instructed.Contact CB 24/7 as needed.Follows up with Ecdis N Navigation Operator.Has pacemaker in place. Last BP obtained from outside records: 03/15/23 125/80 Denies any acute complaint.Continue treatment as prescribed, follow up as instructed.Contact CB 24/7 as needed.Follows up with PCP and Ecdis N Navigation Operator. Last BP obtained from outside records: 03/15/23 [...] attacks/ Increased agitationPlanned intervention: Transfer member to [address] [place] [address]/ Hydroxyzine (Vistaril) 25mg PO q6h PRN anxiety/ Remind member of breathing exercises/ Limit extra stimulationStableFollows up with PCP and GI.Famotidine, Metoclopramide Doing well on current treatment.Denies any acute complaint.Continue treatment as prescribed, follow up as instructed.Contact CB 24/[address] Jacobs, gastroenterologistStableFollowed by PCP, Dr. Marcio Srinivasan meddinorah as prescribedFollows up with PCP and Consumer Studies Professor.:Levothyroxine Sodium Doing well on current treatment.Denies any [...] ECCA Update 07/06/23:Follows up with PCP and Ecdis N Navigation Operator.Denies any current or recent symptoms.No need to take Nitro recently, but has Rx to take as needed.Continue treatment as prescribed, follow up as instructed.Contact CB 24/7 as needed.StableAricept 5 mg Tab 1 tablet orally QDDoing well on current treatment.Denies any acute complaint.Continue treatment as prescribed, follow up as instructed.Contact CB 24/7 as needed.StableFollows up with Ecdis N Navigation Operator.Has pacemaker in place. Denies any acute complaint.Continue treatment as prescribed, follow up as instructed.Contact CB 24/7 as needed. Continue f/u with cardiology.StableFollows up with PCP and Ecdis N Navigation Operator. Reports BP has been well controlled.hydroCHLOROthiazide Doing [...] questions or concerns. Discussed how to contact [facility] via phone or tablet. 24 phone [...]
--- OUTSIDE RECORDS SUMMARY | 2025-08-03 09:15 | XMS_ITS | Clinical Summary ---
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 Active ubrogepant (UBRELVY) 50 mg tabletIndication s:Migraine with aura and without status migrainosus, not [...] 1 5 Active oxyBUTYnin (DITROPAN) 5 mg tabletIndication s:Essential (primary) hypertension,Hyp othyroidism, unspecified Take 1 tablet (5 mg total) by mouth 3 (three) times a day. 270 tablet 5 Active hydroCHLOROthiaz zan (HYDRODIURIL) 25 mg tablet Take 1 tablet (25 mg total) by mouth 1 (one) time each day. 30 tablet 5 Active donepeziL (ARICEPT) 5 mg tablet Take 1 [...] each day. 90 tablet 3 5 Active galcanezumab-gnl m (EMGALITY) 120 mg/mL injection penIndications:M igraine with aura and without status migrainosus, not intractable Inject 1 mL (120 mg total) under the skin every 28 (twenty-eight) days. 1 each 5 5 11/21/20 25 Active isosorbide mononitrate (IMDUR) 30 mg 24 hr tabletIndication s:Chest pain on exertion,Coronar y artery disease due to calcified coronary lesion Take 1 tablet (30 mg total) by mouth 1 (one) time each day. Do not crush or chew. 90 each 5 08/02/20 26 Active metoprolol succinate (TOPROL-XL) 25 mg 24 hr tabletIndication s:Chest pain on exertion,Coronar y artery disease due to calcified coronary lesion Take 0.5 tablets (12.5 mg total) by mouth 1 (one) time each day. Do not crush or chew. 45 each 5 08/02/20 26 Active Active Problems Problem Noted Date Diagnosed Date Intracranial carotid stenosis, bilateral 024 Assessment & Plan (03/26/2025 9:29 AM EDT): Orders: ECG 12 lead Claudication ([facility] V24) 08/30/2022 Overview (09/10/2024): Last Assessment & [...] want to go for blood work then. Connor 10/09/2021 Chest pain on exertion 08/26/2021 Overview [...] AV block and the presence of a [employer] permanent pacemaker, it is crucial to [...] rhinitis 09/30/2020 Anxiety 09/30/2020 Diverticulosis 09/30/2020 Dementia (CMS/[facility] V24, [facility] V28) 09/30/2020 Depression 09/30/2020 GERD (gastroesophageal reflux [...] Cardiology ECG 12 lead Fibromyalgia 04/14/2018 [place] (myocardial infarction) 04/14/2018 Overview (08/02/2025): 04/16/25 NM STRESS TEST WITH MYOCARDIAL PERFUSION 04/16/2025, 04/19/2025 04/16/2025 Impression 1. Abnormal pharmacological nuclear stress test. 2. [...] a normal LV systolic function (LVEF 84%). Signed by: Lanny Stockton NP on 04/16/2025 2:50 PM, Signed by: Geronimo Mccarthy MD on 04/19/2025 9:41 AM 06/19/25 TRANSTHORACIC ECHOCARDIOGRAM (TTE) COMPLETE (CONTRAST/BUBBLE/3D PRN) 06/24/2025 06/19/2025 Interpretation Summary Left ventricle cavity size is normal. Wall thickness is normal. Systolic function is normal with an ejection fraction of 55-60%. Abnormal septal motion consistent with RV pacemaker No hemodynamically significant valvular dysfunction Compared to the prior study from 2021, there has been no significant change Signed by: Kartik Avila MD on 06/24/2025 12:02 PM Encounters Date Type Department Care Team Description 08/02/2025 1:40 PM EDT Office Visit [address] [place] [address] Oc Khan NP Chest pain on exertion (Primary Dx); Coronary artery disease due to calcified coronary lesion; [place] (myocardial infarction) 08/02/[address] [place] [address] Oc Khan NP 07/09/2025 Telephone Internal Medicine - [place] [address] [place] [phone] Meghana Rivera MA 06/19/2025 11:00 AM EDT Ancillary Procedure [facility] [address] [place] [phone] Shortness of breath on exertion 06/06/2025 9:00 AM EDT Office Visit [facility] [place] [facility] [place] [address] [place] [phone] Burak Larson MD Migraine with aura and without status migrainosus, not intractable (Primary Dx); Anxiety 05/24/2025 Telephone [facility] Cardiology [facility] - [address] [place] [address] Oc Khan NP 05/20/2025 7:40 PM EDT Ancillary Procedure [facility] Cardiology [facility] - [address] [place] [address] 05/16/2025 Telephone Internal Medicine - [place] [address] [place] [address] Latisha Zuluaga MD from Last 3 Months Immunizations Name Administration [...] block, 3rd degree ([facility]/ C V24, [facility] V28) 01/03/2019 DX:AV block, 3rd degree ([facility] ) Essential hypertension 05/09/2019 DX:Essent ial hypertension Fibromyalgia 04/14/2018 DX:Fibromyalgia [place] (myocardial infarction) 04/14/2018 D X:[place] (myocardial infarction) Pacemaker 06/02/2020 DX:Pacemaker Pure hypercholesterolemia 05/09/2019 DX:Pur e hypercholesterolemia Diverticulosis 09/30/2020 DX:Diverticulosi s Allergic rhinitis 09/30/2020 DX:Allergic rh initis Anxiety 09/30/2020 DX:Anxiety Dementia (CMS/[facility] V24, CMS/[facility] V28) 09/30/2020 DX:Dementia ([facility]) Depression 09/30/2020 DX:Depression GERD (gastroesophageal reflux disease) [...] Pulse 60 08/02/2025 1:53 PM EDT Temperature 35.9 C (96.7 F) 06/06/2025 9:27 AM EDT Respiratory Rate 16 10/02/2024 3:32 PM EST Oxygen Saturation 100% 08/02/2025 1:53 PM EDT Inhaled Oxygen Concentration - - Weight 55.5 kg (122 lb 4.8 oz) 08/02/2025 1:53 P M EDT Height 157.5 cm (5' 2 ) 08/02/2025 1:53 PM EDT Body Mass Index 22.37 08/02/2025 1:53 PM EDT Plan of Treatment Upcoming Encounters Date Type Department Care Team (Late st Contact Info) Description 10/09/2025 1:00 PM EST Office Visit [address] [place] [address] Carmen Reina, [place] [address] [place] [address] Health Maintenance Due Date Last Done Comments Zoster Vaccines (1 of 2) 1995 RSV Immunization Adult Patients (1 - 1-dose 75+ series) 2020 Hepatitis C Screening 11/04/2022 Osteoporosis Screening (Bone Density Screening) 11/04/2022 Social Influencers of Health Screening 11/04/2022 DTaP,Tdap,and Td Vaccines (2 - Td or Tdap) 11/27/2022 11/27/2012 Depression Screening 11/28/2024 12/08/2023 Hypertension/CHF/CAD Annual BMP Blood Test 12/07/2024 12/07/2023 Falls Risk Assessment 12/08/2024 12/08/2023 Medicare Annual Wellness Visit 12/08/2024 12/08/2023 COVID-19 Vaccine (1 - 2023-2 5 season) 2025 Influenza Vaccine (#1) 2025 Cholesterol Screening (Lipid [...] - [employer] Implanted Type Area Yard Switcher Device Identifier Shelf Expiration Date Model / Serial / Lot [id number]-Crm [id number] Implanted:05/2021 (Quantity not on file) Cardiac Pacemaker [employer] CARD RHYTHM MGMT [id number] / [id number] / Procedures Procedure Name Priority Date/Time Associated Diagnosis Comments TRANSTHORACIC ECHOCARDIOGRAM (TTE) COMPLETE W/ CONTRAST Routine 06/19/2025 11:56 AM EDT Shortness of breath on exertion CARDIAC DEVICE CHECK- REMOTE- MURJ Routine 05/20/2025 7:37 PM EDT DEPRESSION SCREENING Routine 12/08/2023 FALLS RISK ASSESSMENT Routine 12/08/2023 ANNUAL BMP BLOOD TEST Routine 12/07/2023 LIPID PANEL Routine 12/07/2023 from Last 3 Months or Most Recently Relevant to Health Maintenance Results * (ABNORMAL) TRANSTHORACIC ECHOCARDIOGRAM (TTE) COMPLETE W/ CONTRAST (06/19/2025 11:56 AM EDT) Left Atrium Minor Crane 5.3 cm CV PACS Left Atrium Major Crane 4.9 cm CV PACS LA Area Sys [...] Volume 43 mL CV PACS MV Deceleration [place] 1.5 m/s2 CV PACS E Wave Deceleration [...] S' 10 cm/s CV PACS RA Major Crane 4.7 cm CV PACS RA Major Crane Index 3.0(A) 2.2 - 2.8 cm/m2 CV [...] - Remote- MURJ (05/20/2025 7:37 PM EDT) Date Time Interrogation Session [id number] CV DEVICE CHECK Type Interrogation Session Remote Scheduled CV DEVICE CHECK Implantable Pulse Generator Yard Switcher BSX CV DEVICE CHECK Implantable Pulse Generator Type IPG CV DEVICE CHECK Implantable Pulse Generator Model L101 CV DEVICE CHECK Implantable Pulse Generator Serial Number [id number] CV DEVICE CHECK Implantable Pulse Generator Implant Date 20201204 CV DEVICE CHECK Battery Remaining Percentage 71.00 CV DEVICE CHECK Battery Remaining Longevity 42.0 CV DEVICE CHECK Battery Status Beginning of Service CV DEVICE CHECK Bob Statistic RA Percent Paced 23.00 CV DEVICE CHECK Bob Statistic RV Percent Paced 100.00 CV DEVICE CHECK Atrial Tachy Statistic AT/AF [place] [facility] Percent 1.00 CV DEVICE CHECK Lead Channel [...] Mode Switch Rate 170 CV DEVICE CHECK Obb Setting Maximum Tracking Rate 110 CV DEVICE [...] rhythm reviewed * Heart Rate Histograms reviewed Result [facility] Lia Ramires MD CV IMPLANTABLE CARDIAC DEV ICE PROCEDURES Final Result * Falls Risk Assessment (12/08/2023) [facility] Falls Risk Assessment abstracted [facility] Provider HEALTH MAINTENANCE Final Result * Depression Screening (12/08/2023) [facility] Depression Screening abstracted Result [facility] Provider HEALTH MAINTENANCE Final Result * Annual BMP Blood Test (12/07/2023) [facility] Annual BMP Blood Test abstracted Result [facility] Provider HEALTH MAINTENANCE Final Result * (ABNORMAL) Lipid panel (12/07/2023) [facility] LDL/HDL Ratio 3 0 - 4 Triglycerides 152(A) 0 - 150 mg/dL Cholesterol 168 0 - 200 mg/dL HDL 55 >=40 mg/dL LDL Cholesterol 83 0 - 100 mg/dL Blood Venous blood specimen / Unknown Result [facility] Provider LAB BLOOD ORDERABLES Rosalba l Result from Last 3 Months or Most Recently Relevant to Health Maintenance Insurance [place] [employer] Care Teams Metal Cnc Operator Relationship Specialty Start Date End Date Latisha Zuluaga MD [address] [address] PCP - General 09/24/24
== END 2025-08-03 09:14 | disposition home or self-care (01) ==
LOC: HO.CT 09:13
PROVIDERS: PCP Internal Medicine; Visit Provider Registered Nurse
DX: G31.84 Mild cognitive impairment of uncertain or unknown etiology (principal)
CPT/HCPCS: 70450

== ENCOUNTER → 2025-08-03 09:15 | Outpatient (BNV) | payer MEDICARE, SELFPAY | PROVIDERS: PCP Internal Medicine; Visit Provider Radiology Diagnostic Radiology | DX: G31.84 Mild cognitive impairment of uncertain or unknown etiology (principal) | CPT/HCPCS: 70450 ==